=== PATIENT | male | born 1975 | race Caucasian/White ===

== ENCOUNTER 2017-09-22 17:14 | Emergency (ER) | payer OTHER, SELFPAY | END 2017-09-22 17:50 | disposition home or self-care (01) | PROVIDERS: Emergency Provider Nurse Practitioner; Family Provider Internal Medicine Adolescent Medicine; Visit Provider Nurse Practitioner | DX: J32.9 Chronic sinusitis, unspecified (principal) | CPT/HCPCS: 71020; 87804; 99201 ==

== ENCOUNTER 2020-11-06 20:12 | Emergency (ER) | payer OTHER, SELFPAY ==
[2020-11-06 20:15] VITALS: BP 143/92; PULSE 97; RESP 12; TEMP 36.7; O2SAT 97; BMI 44.1
--- NOTE | 2020-11-06 20:38 | HMH.EDUTC ---
[facility] [place] Disposition Clinical Impression: Low back strain Qualifiers: Encounter type: initial encounter Qualified Code(s): S39.012A - Strain of muscle, fascia and tendon of lower back, initial encounter Disposition: Home, Self-Care Condition on Discharge: Good Instructions: DI for Low Back Pain Additional Instructions: Go home and rest. It would be best if you rested tomorrow too. No heavy lifting. No twisting. Take the oral medications as directed. The muscle relaxer (flexeril-cyclobenziprine) will make you drowsy, so don't drive or operate heavy machinery after taking it. Don't start the oral steroids (medrol dose pack) until tomorrow, since you had the shots in here today. Follow up with your regular doctor. GO TO THE ER FOR ANY WORSENING SYMPTOMS OR CONCERN, ESPECIALLY BOWEL OR BLADDER ISSUES, SADDLE AREA NUMBNESS, FEVER, ETC Prescriptions: Cyclobenzaprine HCl [Flexeril 10mg tablet] 10 mg PO TIDP PRN #30 tab PRN Reason: Muscle Spasm Transmission Status: Received by [id number] methylPREDNISolone [Medrol] 4 mg PO DIRECTED 6 Days #21 tab.ds.pk Transmission Status: Received by [id number] Referrals: Nikolai Mcclellan MD [Primary Care Provider] - Time of Disposition: 21:02 Medical Decision Making - Medical Records Medical records reviewed: No: I reviewed the patient's medical records. - Jamie Inquiry Pt receiving controlled substance: No Vital Signs: 11/06/20 20:15 11/06/20 21:10 Temperature 98.0 F 98.0 F Temperature Source Temporal Artery Scan Pulse Rate 97 H Pulse Rate [Right Brachial] 97 H Respiratory Rate 12 12 Blood Pressure 143/92 H Blood Pressure [Right Arm] 143/92 H Blood Pressure Mean [Right Arm] 109 Blood Pressure Source [Right Arm] Automatic Cuff Blood Pressure Position [Right Arm] Sitting 02 Sat by Pulse Oximetry 97 Oxygen Delivery Method Room Air Orders (Tests/Meds): ED MEDICATIONS Discontinued Medications Generic Name Dose Route Start Last Admin Trade Name Freq PRN Reason Stop Dose Admin Ketorolac Tromethamine 60 mg 11/06/20 20:38 11/06/20 21:00 Ketorolac 60mg/2ml Vial IM 11/06/20 20:39 60 mg ONCE ONE Administration Methylprednisolone Sodium Succinate 125 mg 11/06/20 20:38 11/06/20 21:00 Methylprednisolone Sod Succ 125mg Vial IM 11/06/20 20:39 125 mg ONCE ONE Administration [facility] HPI - General Stated complaint: AO [id number] injured lower back Time Seen by Provider: 11/06/20 20:38 Mode of Arrival: Ambulatory Source of Information: Patient Limitations: No Limitations Description of Symptoms (Recalled from Triage Doc. by RN): PATIENT C/O LOWER BACK PAIN. STATES HE HAS BEEN PULLING UP CARPET AND MOVING FURNITURE TODAY HEENT Symptoms (Recalled from RN notes): No Resp Symptoms (Recalled from RN notes): No Skin Symptoms (Recalled from RN notes): No MS Symptoms (Recalled from RN notes): No Functional Status (Recalled from RN notes): WNL - History of Present Illness Provider Complaint: He states that he has had low back pain since earlier today. He was cleaning his carpet and moving furniture when it began. He denies any saddle area numbness and bowel and bladder issues. - Related Data Previous Rx's Medication Instructions Recorded Cyclobenzaprine HCl [Flexeril 10mg 10 mg PO TIDP PRN #30 tab 11/06/20 tablet] methylPREDNISolone [Medrol] 4 mg PO DIRECTED 6 Days #21 11/06/20 tab.ds.pk Allergies Allergy/AdvReac Type Severity Reaction Status Date / Time Cephalosporins Allergy Intermediate Hives Verified 07/21/20 10:34 - Worker's Comp Is this a Worker's Comp case?: No [facility] History - Hepatitis A Screen Drug use history?: No High risk sexual behaviors?: No History of sexually transmitted infection?: No Currently employed?: No Childcare worker?: No Do you have indoor plumbing?: Yes Do you have electricity?: Yes Attestation statement:: This patient has been screened for Hepatiti
[2020-11-06 21:10] VITALS: BP 143/92; PULSE 97; RESP 12; TEMP 36.7; O2SAT 97
== END 2020-11-06 21:12 | disposition home or self-care (01) ==
PROVIDERS: Emergency Provider Nurse Practitioner Family; PCP Internal Medicine Adolescent Medicine
DX: S39.012A Strain of muscle, fascia and tendon of lower back, initial encounter (principal); X50.0XXA Overexertion from strenuous movement or load, initial encounter; Y92.019 Unspecified place in single-family (private) house as the place of occurrence of the external cause; Z88.1 Allergy status to other antibiotic agents
CPT/HCPCS: 96372; 99202; G0463

== ENCOUNTER → 2021-04-05 14:21 | Outpatient (CLI) | payer OTHER, SELFPAY ==
[2021-04-05 14:49] LABS: Basophils % 0.5 % (0.1-2.0); Eosinophils # 0.1 K/mm3 (0.0-0.4); Eosinophils % 1.6 % (0.1-12.0); Hemoglobin 15.2 g/dL (14.1-18.0); Lymphocytes # 2.2 K/mm3 (0.7-4.5); Lymphocytes % 24.1 % (10-50); Mean Corpuscular HGB Conc 34.6 g/dL (31.8-35.4); Mean Corpuscular Hemoglobin 29.2 pg (27.0-31.2); Mean Corpuscular Volume 84.4 fl (80-94); Mean Platelet Volume 8.5 fl (7.4-10.4); Monocytes # 0.5 K/mm3 (0.1-1.0); Monocytes % 5.5 % (1.7-9.3); Neutrophils # 6.2 K/mm3 (1.8-7.8); Neutrophils % 68.4 % (37.0-80.0); Platelet Count 243 K/mm3 (142-424); Red Blood Count 5.22 M/mm3 (4.60-6.20); Red Cell Distribution Width 14.1 % (11.5-17.5)
[2021-04-05 16:12] LABS: Alanine Aminotransferase 22 U/L (12-78); Albumin Level 4.4 g/dl (3.5-5.0); Albumin/Globulin Ratio 1.6 (1.1-1.8); Alkaline Phosphatase 99 U/L (38-126); Anion Gap 14.1 mEq/L (5-15); Aspartate Amino Transferase 31 U/L (17-59); Bilirubin,Total 0.6 mg/dl (0.2-1.3); Blood Urea Nitrogen 15 mg/dl (9-20); Calcium 9.1 mg/dl (8.4-10.2); Carbon Dioxide 25 mmol/L (22.0-30.0); Chloride 104 mmol/L (98-107); Estimated Glomerular Filt Rate 91 ml/min (>60); GFR (African American) 110 ML/MIN (>60); Globulin 2.8 g/dL (1.3-3.2); Glucose 108 mg/dl (74-100); Magnesium 1.9 mg/dl (1.6-2.3); Potassium 4.1 mmoL/L (3.5-5.1); Sodium 139 mmol/L (136-145); Total Protein,Serum 7.2 g/dl (6.3-8.2)
[2021-04-05 16:43] LABS: Thyroid Stimulating Hormone 1.26 uIU/mL (0.465-4.68)
== END ==
PROVIDERS: Visit Provider Internal Medicine Adolescent Medicine
DX: R25.2 Cramp and spasm (principal)
CPT/HCPCS: 36415; 80053; 83735; 84443; 85025

== ENCOUNTER → 2021-06-27 08:22 | Outpatient (CLI) | payer OTHER, SELFPAY | PROVIDERS: PCP Internal Medicine Adolescent Medicine; Visit Provider Nurse Practitioner | DX: Z20.822 Contact with and (suspected) exposure to COVID-19 (principal) | CPT/HCPCS: C9803; U0003; U0005 ==

== ENCOUNTER 2022-06-09 11:01 | Emergency (ER) | payer OTHER, SELFPAY ==
[2022-06-09 12:00] VITALS: BP 129/86; PULSE 88; RESP 18; TEMP 36.7; O2SAT 96; BMI 43.5
--- NOTE | 2022-06-09 12:31 | EXP.UTC ---
Discharge Plan Disposition Patient Disposition: Home, Self-Care Condition: Good Prescriptions Prescriptions: New amoxicillin-pot clavulanate 875-125 mg Tablet 1 tab PO Q12H Qty: 20 0RF methylprednisolone [Medrol (Miki)] 4 mg tablets,dose pack See Rx Instructions .Route .COMPLEX 6 Days Qty: 21 0RF Rx Instructions: taper pack; No Action fexofenadine [Rose] 180 mg Tablet 180 mg PO DAILY Referrals Follow up/Referrals: Nikolai Mcclellan MD [Primary Care Provider] - See instructions Activity Restrictions/Add. Instructions Additional Instructions/Restrictions: Take medication as prescribed Follow up if no improvement or any worsening of symptoms Return if needed Clinical Impressions Clinical Impression: Sinusitis Instructions Patient Instructions: DI for Sinusitis, Sinusitis Discharge ED Provider: Racquel Hill [facility] General Stated complaint: cough, congestion Mode of Arrival: Ambulatory Source of Information: Patient Limitations: No Limitations Time Seen by Provider: 06/09/22 12:31 Description of Symptoms (Recalled from Triage Doc. by RN): PATIENT C/O COUGH AND CONGESTION X 1 WEEK HEENT Symptoms (Recalled from RN notes): Yes Resp Symptoms (Recalled from RN notes): Yes Skin Symptoms (Recalled from RN notes): No MS Symptoms (Recalled from RN notes): No Functional Status (Recalled from RN notes): WNL History of Present Illness Provider Complaint: Patient states that he has been having sinus pain and pressure along with cough and feels like it is trying to move into his chest area States that today he was feeling worse so he came in to get checked out Related Data Home Medications Medication Instructions Recorded Confirmed fexofenadine 180 mg tablet 180 mg PO DAILY Allergy symptoms 06/09/22 06/09/22 Previous Rx's Medication Instructions Recorded amoxicillin 875 mg-potassium 1 tab PO Q12H #20 tabs 06/09/22 clavulanate 125 mg tablet methylprednisolone 4 mg tablets in See Rx Instructions .Route 06/09/22 a dose pack (Medrol (Miki)) .COMPLEX 6 days #21 tabs Allergies Allergy/AdvReac Type Severity Reaction Status Date / Time Cephalosporins Allergy Intermediate Hives Verified 07/21/20 10:34 Worker's Comp Is this a Worker's Comp case?: No [facility] Medical History (Updated 06/09/22 @ 12:40 by Racquel Hill APRN) History of gastroesophageal reflux (GERD) Surgical History (Updated 06/09/22 @ 12:08 by Priscila Elliott RN) History of tonsillectomy Social History (Updated 06/09/22 @ 12:09 by Priscila Elliott RN) Smoking Status: Unknown if ever smoked alcohol intake: never current occupational status: other Travel in the last 8 weeks: None ROS Obtained: Yes All systems reviewed & no additional complaints except as documented and Yes Systems reviewed as appropriate & no additional complaints except as documented Constitutional Constitutional: Reports system reviewed and no additional complaints, except as documented and Reports as per HPI ENT Ears, Nose, Mouth, and Throat: Reports system reviewed and no additional complaints, except as documented, Reports as per HPI, Reports sinus pain and Reports sinus pressure Cardiovascular Cardiovascular: Reports system reviewed and no additional complaints, except as documented and Reports as per HPI Respiratory Respiratory: Reports system reviewed and no additional complaints, except as documented, Reports as per HPI, Reports chest congestion and Reports cough Physical Exam General General appearance: alert and in no apparent distress Expanded ENT Exam Nose exam: Present sinus tenderness Comment: Pharyngeal erythema noted with PND Respiratory Respiratory exam: Present normal lung sounds bilaterally; Absent respiratory distress or wheezes Cardiovascular Cardiovascular exam: Present regular rate, normal rhythm and normal heart sounds Neurological Exam Neurological exam: Present alert, oriented X3 and n
[2022-06-09 12:44] VITALS: BP 129/86; PULSE 88; RESP 18; TEMP 36.7; O2SAT 96
== END 2022-06-09 12:47 | disposition home or self-care (01) ==
PROVIDERS: Emergency Provider Nurse Practitioner; PCP Internal Medicine Adolescent Medicine
DX: J01.90 Acute sinusitis, unspecified (principal)
CPT/HCPCS: 99212; G0463

== ENCOUNTER → 2022-08-28 08:03 | Outpatient (CLI) | payer OTHER, SELFPAY ==
[2022-08-28 08:44] LABS: Basophils # 0.2 K/mm3 (0-0.2); Basophils % 2.5 % (0.1-2.0); Eosinophils # 0.2 K/mm3 (0.0-0.4); Eosinophils % 2.5 % (0.1-12.0); Hematocrit 46.3 % (42.0-52.0); Hemoglobin 15.1 g/dL (14.1-18.0); Lymphocytes # 1.7 K/mm3 (0.7-4.5); Lymphocytes % 24.5 % (10-50); Mean Corpuscular HGB Conc 32.6 g/dL (31.8-35.4); Mean Corpuscular Hemoglobin 28.6 pg (27.0-31.2); Mean Corpuscular Volume 87.7 fl (80-94); Mean Platelet Volume 8.5 fl (7.4-10.4); Monocytes # 0.5 K/mm3 (0.1-1.0); Monocytes % 6.6 % (1.7-9.3); Neutrophils # 4.4 K/mm3 (1.8-7.8); Platelet Count 253 K/mm3 (142-424); Red Blood Count 5.28 M/mm3 (4.60-6.20); Red Cell Distribution Width 14.1 % (11.5-17.5); White Blood Count 6.9 K/mm3 (4.8-10.8)
[2022-08-28 09:10] LABS: Hemoglobin A1C 5.6 % (4.0-6.0)
[2022-08-28 09:24] LABS: Chloride 99 mmol/L (98-107); Sodium 137 mmol/L (136-145)
[2022-08-28 09:25] LABS: Potassium 4.4 mmoL/L (3.5-5.1)
[2022-08-28 09:27] LABS: Alanine Aminotransferase 30 U/L (12-78); Alkaline Phosphatase 110 U/L (38-126); Aspartate Amino Transferase 32 U/L (17-59); Bilirubin,Total 0.4 mg/dl (0.2-1.3); Blood Urea Nitrogen 12 mg/dl (9-20); Estimated Glomerular Filt Rate 90 ml/min (>60); GFR (African American) 109 ML/MIN (>60)
[2022-08-28 09:28] LABS: Albumin Level 4.2 g/dl (3.5-5.0); Albumin/Globulin Ratio 1.4 (1.1-1.8); Anion Gap 11.4 mEq/L (5-15); Calcium 9.6 mg/dl (8.4-10.2); Carbon Dioxide 31 mmol/L (22.0-30.0); Chol/HDL Ratio 4.3 (1-3.5); Cholesterol 260 mg/dl (140-200); Globulin 2.9 g/dL (1.3-3.2); Glucose 90 mg/dl (74-100); HDL Cholesterol 60 mg/dl (40-60); Total Protein,Serum 7.1 g/dl (6.3-8.2); Triglycerides 277 mg/dl (30-150); VLDL Cholesterol 55 mg/dL (0-40)
[2022-08-28 09:35] LABS: C-Reactive Protein 16.7 mg/L (0-4)
[2022-08-28 09:36] LABS: NT Pro Brain Natriuretic Pep. < 11.1 pg/mL (0-125)
[2022-08-29 11:13] LABS: Insulin Level Total 20.3 uIU/mL (2.6-24.9)
== END ==
PROVIDERS: PCP Internal Medicine Adolescent Medicine; Visit Provider Internal Medicine Adolescent Medicine
DX: R05.8 Other specified cough (principal); R53.81 Other malaise; R53.83 Other fatigue
CPT/HCPCS: 36415; 80053; 80061; 82533; 83036; 83525; 83880; 85025; 86140

== ENCOUNTER 2022-11-08 07:55 | Day surgery (SDC) | payer OTHER, SELFPAY ==
[2022-10-11 12:25] VITALS: BMI 45.6
[2022-11-08 08:10] VITALS: BP 135/91; PULSE 84; RESP 18; TEMP 36.3; O2SAT 96
--- NOTE | 2022-11-08 08:36 | P.PN_ITS ---
[facility] Disclaimer: The information contained in this section may have been updated after the patient was seen, as this information can be updated by other users. Medical History History of gastroesophageal reflux (GERD) Surgical History History of tonsillectomy Family History (Updated 11/08/22 @ 08:23 by Farnaz Chand RN) Other No significant family history Social History Smoking Status: Never smoker alcohol intake: never substance use type: denies use current occupational status: employed Travel in the last 8 weeks: Inside the [place] household members: family housing: house lives independently: Yes marital status: caffeine: Yes special todd needs: No agree to transfusion: No do you feel safe at home: Yes victim of physical abuse: No victim of emotional abuse: No victim of sexual abuse: No would you like helpful sources: No [facility] Anesthesia Checklist Patient Identification Patient Identification: Verbal (Name & ) Structural Data Admitted From: Home Planned Operative Procedure/s: colonoscopy Consent for Planned Operative Procedure(s) Verified: Yes Airway Assessment C-Spine Mobility Assessed: Yes TMJ Mobility Assessed: Yes Dentition: Good Dentition Neurological Assessment Level of Consciousness: Awake, Alert and Appropriate Anesthesia Plan Anesthesia Risk discussed: Yes Anesthesia Plan: Verified ASA Class: II Anesthesia Type: MAC
[2022-11-08 08:40] VITALS: O2SAT 96
--- NOTE | 2022-11-08 08:54 | P.PCN_ITS ---
Procedure: Date: 11/08/22 Patient Date of :: 1975 Procedure Performed:: Screening colonoscopy Indications:: Age for screening exam. Father with polyps Performing Provider:: Jany Thompson MD Referring Provider:: Nikolai Mcclellan Sedation:: Propofol Procedure:: After placing the patient in the left lateral decubitus position, the colonoscopy was gently inserted into the rectum and under direct visualization a dvanced to the cecum which was identified by transillumination in the right lower quadrant, identification of the ileocecal valve, appendiceal orifice, and cecal strap. Color, texture, mucosa, and anatomy of the colon were carefully examined with the scope. Findings:: Anal canal: normal Rectum: normal Sigmoid colon: normal without polyps or inflammatory changes Descending colon: normal without polyps or inflammatory changes Splenic flexure: normal Transverse colon: normal without polyps or inflammatory changes Hepatic flexure: normal Ascending colon: normal without polyps or inflammatory changes Cecum: normal Terminal ileum: not visualized Impression: Normal colonoscopy Recommendations:: Follow up examination in about TEN years or so, sooner if clinically indicated. Complications:: None Estimated blood obtained (mL): 0
[2022-11-08 08:57] VITALS: BP 122/80; PULSE 93; RESP 16; TEMP 36.3; O2SAT 96
[2022-11-08 09:07] VITALS: BP 124/84; PULSE 83; RESP 16; O2SAT 96
[2022-11-08 09:17] VITALS: BP 129/89; PULSE 84; RESP 17; O2SAT 96
[2022-11-08 09:27] VITALS: BP 125/75; PULSE 68; RESP 16; TEMP 36.6; O2SAT 97
== END 2022-11-08 09:30 | disposition home or self-care (01) ==
PROVIDERS: PCP Internal Medicine Adolescent Medicine; Visit Provider Internal Medicine Gastroenterology
PROC: 0DJD8ZZ Inspection of Lower Intestinal Tract, Via Natural or Artificial Opening Endoscopic (ICD-10-PCS; CPT 45378; principal; 2022-11-08 09:00)
DX: Z12.11 Encounter for screening for malignant neoplasm of colon (principal)
CPT/HCPCS: 45378

== ENCOUNTER 2022-12-16 10:27 | Emergency (ER) | payer OTHER, SELFPAY ==
--- NOTE | 2022-12-16 11:29 | XR_ITS ---
PROCEDURE INFORMATION: Exam: XR Chest Exam date and time: 12/16/2022 11:27 AM Age: 47 years old Clinical indication: Cough TECHNIQUE: Imaging protocol: Radiologic exam of the chest. Views: 2 views. COMPARISON: CR CXR CHEST(2 VIEWS-NOT PORTABLE) 09/22/2017 5:27 PM FINDINGS: Lungs: No focal airspace disease. Pleural spaces: Unremarkable. No pleural effusion. No pneumothorax. Heart/Mediastinum: Cardiomediastinal silhouette is within normal limits. Bones/joints: Unremarkable. IMPRESSION: No acute cardiopulmonary abnormality.
[2022-12-16 11:30] VITALS: BP 130/93; PULSE 76; RESP 20; TEMP 36.8; O2SAT 97; BMI 46.3
--- NOTE | 2022-12-16 11:31 | EXP.UTC ---
Discharge Plan Disposition Patient Disposition: Home, Self-Care Condition: Good Prescriptions Prescriptions: New amoxicillin-pot clavulanate 875-125 mg Tablet 1 tab PO Q12H Qty: 20 0RF benzonatate [benzonatate] 100 mg capsule 100 mg PO TIDP PRN (Reason: Cough) Qty: 30 0RF methylprednisolone 4 mg Tablets,Dose Pack 4 mg PO DIRECTED Qty: 21 0RF No Action montelukast 10 mg Tablet 10 mg PO DAILY fluticasone propionate [Flonase] 50 mcg/actuation [place],Suspension 1 spray INTRANASAL DAILY fluticasone propionate [Flovent HFA] 110 mcg/actuation HFA aerosol inhaler 110 mcg INHALATION DAILY Referrals Follow up/Referrals: Nikolai Mcclellan MD [Primary Care Provider] - See instructions Activity Restrictions/Add. Instructions Additional Instructions/Restrictions: Drink plenty of fluids. Take tylenol or ibuprofen for pain or fever. Take the medications as directed. Follow up with your regular doctor. GO TO THE ER FOR ANY WORSENING SYMPTOMS Don't start the oral steroids until tomorrow, since you had the shot here today. Clinical Impressions Clinical Impression: Bronchitis Instructions Patient Instructions: Acute Bronchitis, DI for Acute Bronchitis, Dexamethasone Injection Discharge ED Provider: Juanjose Feng [facility] HPI General Stated complaint: cough Time Seen by Provider: 12/16/22 11:31 History of Present Illness Provider Complaint: He states that for the past 2 days he has had chest congestion and sinus congestion. Related Data Home Medications Medication Instructions Recorded Confirmed fluticasone propionate 110 110 mcg inhalation DAILY . 12/16/22 12/16/22 mcg/actuation HFA aerosol inhaler (Flovent HFA) fluticasone propionate 50 1 spray intranasal DAILY . 12/16/22 12/16/22 mcg/actuation nasal spray,suspension montelukast 10 mg tablet 10 mg PO DAILY . 12/16/22 12/16/22 Previous Rx's Medication Instructions Recorded amoxicillin 875 mg-potassium 1 tab PO Q12H #20 tabs 12/16/22 clavulanate 125 mg tablet benzonatate 100 mg capsule 100 mg PO TIDP PRN Cough #30 caps 12/16/22 methylprednisolone 4 mg tablets in 4 mg PO DIRECTED #21 tabs 12/16/22 a dose pack Allergies Allergy/AdvReac Type Severity Reaction Status Date / Time Cephalosporins Allergy Intermediate Hives Verified 12/16/22 11:34 [facility] Disclaimer: The information contained in this section may have been updated after the patient was seen, as this information can be updated by other users. Medical History History of gastroesophageal reflux (GERD) Surgical History History of tonsillectomy Family History Other No significant family history Social History Smoking Status: Never smoker alcohol intake: never substance use type: denies use current occupational status: employed Travel in the last 8 weeks: Inside the [place] household members: family housing: house lives independently: Yes marital status: caffeine: Yes special todd needs: No agree to transfusion: No do you feel safe at home: Yes victim of physical abuse: No victim of emotional abuse: No victim of sexual abuse: No would you like helpful sources: No ROS Obtained: Yes All systems reviewed & no additional complaints except as documented Constitutional Constitutional: Reports poor appetite Eyes Eyes: Reports system reviewed and no additional complaints, except as documented ENT Ears, Nose, Mouth, and Throat: Reports as per HPI Cardiovascular Cardiovascular: Reports system reviewed and no additional complaints, except as documented and Denies chest pain Respiratory Respiratory: Denies shortness of breath, Reports chest congestion, Reports cough,
[2022-12-16 12:41] VITALS: BP 130/93; PULSE 76; RESP 20; TEMP 36.8; O2SAT 97
== END 2022-12-16 12:40 | disposition home or self-care (01) ==
PROVIDERS: Emergency Provider Nurse Practitioner Family; PCP Internal Medicine Adolescent Medicine
DX: J20.9 Acute bronchitis, unspecified (principal)
CPT/HCPCS: 96372; 71046; 99212; 99214; G0463

== ENCOUNTER → 2023-01-22 13:44 | Outpatient (POV) | payer OTHER, SELFPAY | PROVIDERS: Visit Provider Dermatology | DX: Z00.00 Encounter for general adult medical examination without abnormal findings (principal) ==

== ENCOUNTER → 2023-02-20 10:37 | Outpatient (CLI) | payer OTHER, SELFPAY ==
[2023-02-20 11:12] LABS: Basophils # 0.1 K/mm3 (0-0.2); Basophils % 0.7 % (0.1-2.0); Eosinophils # 0.2 K/mm3 (0.0-0.4); Hemoglobin 14.7 g/dL (14.1-18.0); Lymphocytes # 1.9 K/mm3 (0.7-4.5); Lymphocytes % 26.6 % (10-50); Mean Corpuscular HGB Conc 32.7 g/dL (31.8-35.4); Mean Corpuscular Hemoglobin 28.9 pg (27.0-31.2); Mean Corpuscular Volume 88.4 fl (80-94); Mean Platelet Volume 8.6 fl (7.4-10.4); Monocytes # 0.4 K/mm3 (0.1-1.0); Monocytes % 5.8 % (1.7-9.3); Neutrophils # 4.6 K/mm3 (1.8-7.8); Platelet Count 232 K/mm3 (142-424); Red Blood Count 5.09 M/mm3 (4.60-6.20); Red Cell Distribution Width 14.1 % (11.5-17.5); White Blood Count 7.1 K/mm3 (4.8-10.8)
[2023-02-20 11:48] LABS: Chloride 94 mmol/L (98-107); Potassium 4.2 mmoL/L (3.5-5.1); Sodium 135 mmol/L (136-145)
[2023-02-20 11:50] LABS: Alanine Aminotransferase 32 U/L (12-78); Aspartate Amino Transferase 36 U/L (17-59); Blood Urea Nitrogen 14 mg/dl (9-20); Estimated Glomerular Filt Rate 90 ml/min (>60); GFR (African American) 109 ML/MIN (>60)
[2023-02-20 11:51] LABS: Albumin Level 4.2 g/dl (3.5-5.0); Albumin/Globulin Ratio 1.7 (1.1-1.8); Alkaline Phosphatase 92 U/L (38-126); Anion Gap 14.2 mEq/L (5-15); Bilirubin,Total 0.4 mg/dl (0.2-1.3); Calcium 9.2 mg/dl (8.4-10.2); Carbon Dioxide 31 mmol/L (22.0-30.0); Chol/HDL Ratio 3.7 (1-3.5); Cholesterol 230 mg/dl (140-200); Creatine Kinase 178 U/L (55-170); Globulin 2.5 g/dL (1.3-3.2); Glucose 85 mg/dl (74-100); HDL Cholesterol 63 mg/dl (40-60); Total Protein,Serum 6.7 g/dl (6.3-8.2); Triglycerides 290 mg/dl (30-150); VLDL Cholesterol 58 mg/dL (0-40)
[2023-02-20 11:54] LABS: Erythrocyte Sedimentation Rate 58 mm/hr (0-15)
[2023-02-20 12:02] LABS: Direct LDL Cholesterol 102.08 mg/dL (100-129)
[2023-02-20 12:09] LABS: 25-OH Vitamin D, Total 27.7 ng/mL (30-100)
[2023-02-20 12:41] LABS: Vitamin B12 400 pg/mL (239-931)
[2023-02-20 13:02] LABS: Hemoglobin A1C 5.5 % (4.0-6.0)
[2023-02-20 13:59] LABS: Thyroid Stimulating Hormone 1.66 uIU/mL (0.465-4.68)
[2023-02-22 09:54] LABS: C-Reactive Protein 11.4 mg/L (0-4)
[2023-02-25 14:39] LABS: Aldolase 5.7 U/L (3.3-10.3)
[2023-02-25 20:04] LABS: Antinuclear Antibodies, IFA Negative (.)
== END ==
PROVIDERS: PCP Internal Medicine Adolescent Medicine; Visit Provider Nurse Practitioner Family
DX: M79.10 Myalgia, unspecified site (principal); R25.2 Cramp and spasm; R53.81 Other malaise; E78.2 Mixed hyperlipidemia; R70.0 Elevated erythrocyte sedimentation rate; R74.8 Abnormal levels of other serum enzymes
CPT/HCPCS: 36415; 80053; 80061; 82085; 82306; 82550; 82607; 83036; 83735; 84443; 85025; 85651; 86038; 86140

== ENCOUNTER → 2023-03-29 07:25 | Outpatient (CLI) | payer OTHER, SELFPAY ==
[2023-03-29 09:07] LABS: Chloride 99 mmol/L (98-107); Potassium 4.3 mmoL/L (3.5-5.1); Sodium 137 mmol/L (136-145)
[2023-03-29 09:09] LABS: Blood Urea Nitrogen 14 mg/dl (9-20); Estimated Glomerular Filt Rate 80 ml/min (>60); GFR (African American) 97 ML/MIN (>60)
[2023-03-29 09:10] LABS: Alanine Aminotransferase 31 U/L (12-78); Albumin/Globulin Ratio 1.5 (1.1-1.8); Alkaline Phosphatase 95 U/L (38-126); Anion Gap 15.3 mEq/L (5-15); Aspartate Amino Transferase 36 U/L (17-59); Bilirubin,Total 0.6 mg/dl (0.2-1.3); Calcium 8.9 mg/dl (8.4-10.2); Carbon Dioxide 27 mmol/L (22.0-30.0); Creatine Kinase 358 U/L (55-170); Globulin 2.7 g/dL (1.3-3.2); Glucose 86 mg/dl (74-100); Total Protein,Serum 6.7 g/dl (6.3-8.2)
[2023-03-29 09:29] LABS: Erythrocyte Sedimentation Rate 16 mm/hr (0-15)
[2023-03-29 09:35] LABS: Basophils % 0.4 % (0.1-2.0); Eosinophils # 0.2 K/mm3 (0.0-0.4); Eosinophils % 2.3 % (0.1-12.0); Hematocrit 46.1 % (42.0-52.0); Hemoglobin 15.1 g/dL (14.1-18.0); Lymphocytes # 2.1 K/mm3 (0.7-4.5); Lymphocytes % 30.5 % (10-50); Mean Corpuscular HGB Conc 32.8 g/dL (31.8-35.4); Mean Corpuscular Hemoglobin 28.1 pg (27.0-31.2); Mean Corpuscular Volume 85.5 fl (80-94); Monocytes # 0.5 K/mm3 (0.1-1.0); Monocytes % 7.3 % (1.7-9.3); Neutrophils # 4.1 K/mm3 (1.8-7.8); Neutrophils % 59.4 % (37.0-80.0); Platelet Count 275 K/mm3 (142-424); White Blood Count 6.9 K/mm3 (4.8-10.8)
[2023-03-29 10:11] LABS: C-Reactive Protein 15.5 mg/L (0-4)
[2023-03-30 19:35] LABS: RA Latex Turbid. <10.0 IU/mL (<14.0)
== END ==
PROVIDERS: PCP Internal Medicine Adolescent Medicine; Visit Provider Internal Medicine Adolescent Medicine
DX: M79.10 Myalgia, unspecified site (principal); R74.8 Abnormal levels of other serum enzymes
CPT/HCPCS: 36415; 80053; 82550; 85025; 85651; 86140; 86431

== ENCOUNTER → 2023-06-20 08:32 | Outpatient (CLI) | payer OTHER, SELFPAY ==
--- NOTE | 2023-06-20 08:36 | CA_ITS ---
APPROVED REPORT EXAM: Comprehensive 2D, Doppler, and color-flow Echocardiogram Insurance Examining Clerk: Catrachita Carballo RT(R) Ht: 5 ft 9 in Wt: 305lbs BSA: 2.47 BP: 142/84 mmHg Indications: SOA, fatigue, family history of HD, obesity, myalgia 2D Dimensions LVOT 1.98 cm (M/F) 1.5-2.5 M-Mode Dimensions RVDd 3.47 cm (0.9-2.6) LA Diam 3.44 cm (1.9-4.0) LVDd 4.36 cm (3.5-5.7) Ao Diam 3.48 cm (2.0-3.7) LVDs 3.33 cm (3.5-5.7) IVSd 1.17 cm (0.6-1.1) PWd 1.22 cm (0.6-1.1) EF (Teich) 47.40% FS 23.60% EDV (Teich) 85.80 mL ESV (Teich) 45.10 mL LV Diastology E Decel Time 183.00 (160-240 msec) E/A Ratio 0.8 MED E' 5.70 (< 7 cm/sec) E'/MED E' Ratio 14.84 (>14) LAT E' 6.00 (<10 cm/sec) E/LAT E' Ratio 14.10 (>14) Mitral Valve MV E Max David. 85.00 (40-130 cm/s) MV A Velocity 101.00 (40-130 cm/s) E/A Ratio 0.83 MV Decel. Time 183.00 (160-240 ms) MV PHT 54.00 ms Left Ventricle The left ventricle is normal size. The left ventricular systolic function is normal. The left ventricular ejection fraction is within the normal range. There is increased LV wall thickness. There is normal LV segmental wall motion. Diastolic function is indeterminate. LVEF is 60%. Right Ventricle The right ventricle is normal size. The right ventricular systolic function is normal. Atria The left atrium size is normal. The right atrium size is normal. The atrial septum is not well visualized. Aortic Valve The aortic valve is mildly thickened. There is no aortic valvular stenosis. No aortic regurgitation is present. Mitral Valve The mitral valve is normal in structure. No evidence of mitral valve stenosis. Trace mitral regurgitation. Tricuspid Valve The tricuspid valve leaflets are thin and pliable. Trace tricuspid regurgitation. There is insufficient TR jet to estimate RVSP. Pulmonic Valve The pulmonary valve is normal in structure. Trace pulmonic regurgitation. Great Vessels The aortic root is normal in size. The ascending aorta is normal in size. The IVC is not well visualized. Pericardium There is no pericardial effusion. Other Information Study Quality: Fair Conclusion Normal biventricular systolic function. No significant valvular stenosis or regurgitation. Electronically signed by : Natalia Ritchie, 06/24/2023 16:50:33
== END ==
PROVIDERS: PCP Internal Medicine Adolescent Medicine; Visit Provider Nurse Practitioner Family
DX: R06.02 Shortness of breath (principal); M79.10 Myalgia, unspecified site
CPT/HCPCS: 93306

== ENCOUNTER → 2023-09-03 13:03 | Outpatient (CLI) | payer OTHER, SELFPAY | PROVIDERS: PCP Internal Medicine Adolescent Medicine; Visit Provider Specialist | DX: R06.02 Shortness of breath (principal); R53.83 Other fatigue | CPT/HCPCS: 94060; 94618; 94726; 94729 ==

== ENCOUNTER → 2023-09-10 07:30 | Outpatient (CLI) | payer OTHER, SELFPAY ==
[2023-09-10 08:31] LABS: Erythrocyte Sedimentation Rate 11 mm/hr (0-15)
[2023-09-10 09:54] LABS: Creatine Kinase 192 U/L (55-170)
[2023-09-11 14:32] LABS: Aldolase 4.9 U/L (3.3-10.3)
[2023-09-13 09:28] LABS: Lyme B. burgdorferi PCR Blood Negative (Negative)
== END ==
PROVIDERS: PCP Internal Medicine Adolescent Medicine; Visit Provider Specialist
DX: E66.9 Obesity, unspecified (principal); G47.9 Sleep disorder, unspecified; R06.81 Apnea, not elsewhere classified; R74.8 Abnormal levels of other serum enzymes; R53.81 Other malaise; R53.82 Chronic fatigue, unspecified; Z68.41 Body mass index [BMI] 40.0-44.9, adult
CPT/HCPCS: 36415; 82085; 82550; 85651; 87476

== ENCOUNTER 2023-10-10 16:43 | Emergency (ER) | payer OTHER, SELFPAY ==
--- NOTE | 2023-10-10 16:55 | EXP.UTC ---
Discharge Plan Disposition Patient Disposition: Home, Self-Care Condition: Good Prescriptions Prescriptions: New azithromycin [Zithromax] 250 mg tablet 250 mg PO UD DOSE PK Qty: 6 0RF Rx Instructions: Take two (2) tablets today, then one (1) tablet days #2 thru #5 methylprednisolone 4 mg Tablets,Dose Pack 4 mg PO DIRECTED 6 Days Qty: 21 0RF Rx Instructions: Take 1 pack as directed for 6 days guaifenesin [Mucinex] 600 mg tablet extended release 12hr 600 - 1,200 mg PO BIDP PRN (Reason: Congestion) Qty: 30 0RF benzonatate [benzonatate] 100 mg capsule 100 mg PO TIDP PRN (Reason: Cough) Qty: 30 0RF No Action meloxicam 15 mg tablet 15 mg PO DAILY methocarbamol 750 mg tablet 750 mg PO BID Patient Comments: TAKE 1 TABLET BY MOUTH TWICE DAILY NEEDED fexofenadine [Rose Allergy] 180 mg tablet 180 mg PO DAILY fluticasone propionate [Flonase Allergy Relief] 50 mcg/actuation spray,suspension 1 spray intranasal DAILY Rx Instructions: administer into each nostril valacyclovir 1 gram tablet 1,000 mg PO BID PRN (Reason: .) magnesium oxide 400 mg (241.3 mg magnesium) tablet See Rx Instructions .ROUTE .COMPLEX Patient Comments: TAKE 1 TABLET BY MOUTH ONCE A DAY AT BEDTIME Rx Instructions: TAKE 1 TABLET BY MOUTH ONCE A DAY AT BEDTIME montelukast 10 mg Tablet 10 mg PO DAILY fluticasone propionate [Flonase] 50 mcg/actuation [place],Suspension 1 spray INTRANASAL DAILY Referrals Follow up/Referrals: Nikolai Mcclellan MD [Primary Care Provider] - See instructions Activity Restrictions/Add. Instructions Additional Instructions/Restrictions: Drink plenty of fluids. Take tylenol or ibuprofen for pain or fever. Take the medications as directed. Follow up with your regular doctor. GO TO THE ER FOR ANY WORSENING SYMPTOMS Clinical Impressions Clinical Impression: Sinusitis, Otitis media Instructions Patient Instructions: Middle Ear Infection, DI for Sinusitis, Methylprednisolone, Azithromycin Discharge ED Provider: Juanjose Feng [facility] [place] HPI General Stated complaint: runny nose, sore throat, cough Time Seen by Provider: 10/10/23 16:55 History of Present Illness Provider Complaint: He states that for the past 3 days he has had worsening sinus congestion, left ear pain, and headache. Related Data Home Medications Medication Instructions Recorded Confirmed fluticasone propionate 50 1 spray intranasal DAILY . 12/16/22 10/10/23 mcg/actuation nasal spray,suspension montelukast 10 mg tablet 10 mg PO DAILY . 12/16/22 10/10/23 fexofenadine 180 mg tablet 180 mg PO DAILY 08/19/23 08/19/23 (Rose Allergy) fluticasone propionate 50 1 spray intranasal DAILY 08/19/23 10/10/23 mcg/actuation nasal spray,suspension (Flonase Allergy Relief) meloxicam 15 mg tablet 15 mg PO DAILY 08/19/23 10/10/23 methocarbamol 750 mg tablet 750 mg PO BID 08/19/23 10/10/23 valacyclovir 1 gram tablet 1,000 mg PO BID PRN . 08/19/23 10/10/23 magnesium oxide 400 mg (241.3 mg See Rx Instructions .Route .COMPLEX 10/10/23 10/10/23 magnesium) tablet Previous Rx's Medication Instructions Recorded azithromycin 250 mg tablet 250 mg PO UD DOSE PK #6 tabs 10/10/23 (Zithromax) benzonatate 100 mg capsule 100 mg PO TIDP PRN Cough #30 caps 10/10/23 guaifenesin 600 mg tablet, 600 - 1,200 mg PO BIDP PRN 10/10/23 extended release 12 hr (Mucinex) Congestion #30 tabs methylprednisolone 4 mg tablets in 4 mg PO DIRECTED 6 days #21 tabs 10/10/23 a dose pack Allergies Allergy/AdvReac Type Severity Reaction Status Date / Time Cephalosporins Allergy Intermediate Hives Verified 10/10/23 17:27 [facility] Disclaimer: The information contained in this section may have been updated after the patient was seen, as this information can be updated by other users. Medical History History of gastroesophageal reflux (GERD) Surgical History History of tonsillectomy Family History Other Diabetes Hyperlipidemia Hypertension No significant family history Obesity Stroke Social History Smoking Status: Never smoker alcohol intake: never substance use type: denies use current occupational status: employed Travel in the last 8 weeks: None household members: family housing: house lives independently: Yes marital status: caffeine: Yes special todd needs: No agree to transfusion: No do you feel safe at home: Yes victim of physical abuse: No victim of emotional abuse: No victim of sexual abuse: No would you like helpful sources: No ROS Obtained: Yes All systems reviewed & no additional complaints except as documented Constitutional Constitutional: Reports poor appetite Eyes Eyes: Reports system reviewed and no additional complaints, except as documented ENT Ears, Nose, Mouth, and Throat: Reports as per HPI Cardiovascular Cardiovascular: Reports system reviewed and no additional complaints, except as documented and Denies chest pain Respiratory Respiratory: Denies shortness of breath, Denies chest congestion, Reports cough, Denies stridor and Denies wheezing Gastrointestinal Gastrointestingal: Reports system reviewed and no additional complaints, except as documented; Denies abdominal pain, diarrhea or vomiting Musculoskeletal Musculoskeletal: Reports system reviewed and no additional complaints, except as documented and Denies arthralgias Integumentary/Breasts Skin/Breast: Reports system reviewed and no additional complaints, except as documented and Denies rash Neurologic Neurologic: Denies paresthesias Allergic/Immunologic Allergic/Immunologic: Denies wheezing Physical Exam General General appearance: alert and in no apparent distress Eye Eye exam: Present normal appearance, PERRL and EOMI ENT ENT exam: Present mucous membranes moist and normal external ear exam Expanded ENT Exam External ear exam: Present normal external inspection TM/Canal exam: Bilateral TM: erythema and bulging Nose exam: Absent sinus tenderness Nasal speculum exam: Bilateral: normal Mouth exam: Present normal external inspection; Absent drooling Teeth exam: Present normal inspection Throat exam: Present tonsillar erythema and tonsillomegaly Neck Neck exam: Present normal inspection, full ROM and trachea midline; Absent tenderness, lymphadenopathy or thyromegaly Chest Chest inspection: Present normal inspection and symmetric chest wall rise; Absent tenderness or rash Respiratory Respiratory exam: Present normal lung sounds bilaterally; Absent respiratory distress, wheezes, stridor or accessory muscle use Cardiovascular Cardiovascular exam: Present regular rate, normal rhythm and normal heart sounds Abdominal Exam Abdominal exam: Present soft; Absent distention, tenderness, guarding, rebound or rigidity Extremities Exam Extremities exam: Present normal inspection, full ROM and normal capillary refill; Absent tenderness or calf tenderness Back Exam Back exam: Present normal inspection and full ROM; Absent tenderness Neurological Exam Neurological exam: Present alert and oriented X3 Psychiatric Psychiatric exam: Present normal affect and normal mood Skin Skin exam: Present warm, dry, intact and normal color Lymphatic Lymphatic Findings: no adenopathy Medical Decision Making Medical Records Medical records reviewed: No I reviewed the patient's medical records. Jamie Inquiry Pt receiving controlled substance: No
[2023-10-10 17:10] VITALS: BP 148/91; PULSE 112; RESP 18; TEMP 36.4; O2SAT 95; BMI 46.3
[2023-10-10 17:24] LABS: UTC Strep Screen (Rapid) Negative (Negative)
[2023-10-10 17:25] LABS: UTC Influenza A Antigen Negative (Negative); UTC Influenza B Antigen Negative (Negative)
[2023-10-10 17:41] VITALS: BP 148/91; PULSE 112; RESP 18; TEMP 36.4; O2SAT 95
== END 2023-10-10 17:41 | disposition home or self-care (01) ==
PROVIDERS: Emergency Provider Nurse Practitioner Family; PCP Internal Medicine Adolescent Medicine
DX: J01.90 Acute sinusitis, unspecified (principal); H66.90 Otitis media, unspecified, unspecified ear; R51.9 Headache, unspecified; R05.9 Cough, unspecified
CPT/HCPCS: 87804; 87880; 99212; 99214; G0463

== ENCOUNTER → 2023-10-31 14:42 | Outpatient (CLI) | payer OTHER, SELFPAY | LOC: SL 14:43 | PROVIDERS: PCP Internal Medicine Adolescent Medicine; Visit Provider Specialist | DX: R06.83 Snoring (principal) | CPT/HCPCS: 95806 ==

== ENCOUNTER 2023-11-05 09:36 | Outpatient (CLI) | payer OTHER, SELFPAY | END 2023-11-05 23:59 | LOC: RT 09:37 | PROVIDERS: PCP Internal Medicine Adolescent Medicine; Visit Provider Physician Assistant | DX: I10 Essential (primary) hypertension (principal); R00.0 Tachycardia, unspecified; R06.09 Other forms of dyspnea; R94.31 Abnormal electrocardiogram [ECG] [EKG] | CPT/HCPCS: 93270 ==

== ENCOUNTER 2023-11-21 07:08 | Outpatient (CLI) | payer OTHER, SELFPAY ==
[2023-11-21] VITALS (8 sets, daily range): BP systolic 104–135; BP diastolic 61–94; PULSE 67–79; RESP 18; TEMP 36.8; O2SAT 97–98; BMI 46.6
--- NOTE | 2023-11-21 07:08 | CT_ITS ---
APPROVED REPORT Boardinghouse Keeper: CLINICAL INDICATION Chest Pain TECHNIQUE Image Acquisition: A 128 slice MDCT scanner ([employer] Ensendaa View) was used for data acquisition. A noncontrast coronary calcium scan was performed. A CT attenuation threshold of 130 Hounsfield units (HU) was used for the detection of calcium in contiguous voxels of 1 sq mm in area to be counted as individual lesions. Bolus tracking in the ascending aorta with a threshold of 180 HU was performed. Immediately afterwards, ECG synchronized cardiac CT was then performed from the cardiac base to apex using retrospective gating with ECG tube current modulation. A total of 85 mL of Isovue 370 mg/mL contrast medium was administered at 5 mL/sec followed by a saline flush using a biphasic injection protocol. A tube voltage of 120 KVp was used. The patient received the following medications prior to the cardiac CT. 150 mg of oral metoprolol 10 mg of intravenous metoprolol 15 mg of oral ivabradine 10 mg of intravenous verapamil 0.8 mg of sublingual nitroglycerin The average heart rate at the time of acquisition was 64 bpm and regular. Image Reconstruction Transaxial images were reconstructed at 0.67 mm slide thickness. Data was reviewed interactively on an advanced workstation capable of 2 and 3-dimensional displays in all conventional reconstruction formats, including multiplanar reformations, maximum intensity projections, curved multiplanar reformations, and volume rendered reconstructions. When applicable, selected routine images describing the relevant coronary anatomy and pathology were saved and sent to PACS. Complications None Technical Quality Technically difficult study. Overall image quality was suboptimal due to poor image quality and elevated HR (despite HR-controlling medications as above). Coronary artery opacification was suboptimal. Total DLP (Dose-Length Product) is 2936.9 mGy-cm. The reported value represents the total of one or more individual components during the CT acquisition of this date and at this time, and as such, the same value may appear in more than one CT report depending on the interpreting/reporting physicians. COMPARISON None FINDINGS CT Coronary Calcium Scoring LMA (Left Main Artery) = 0 LAD (Left Anterior Descending) = 275 LCX (Left Coronary Circumflex) = 42 RCA (Right Coronary Artery) = 2 Total Calcium Score = 319 using the AJ-130 method. The observed calcium score of 319 is at 97th percentile for subjects of the same age, sex, and race/ethnicity. The interpretation of the calcium heart score is based on the following continuum*: 0 = no calcified plaque detected (risk of coronary artery disease is very low ??? less than 5%) 1-10 = calcium detected in extremely minimal levels (risk of coronary diseases is still low ??? less than 10%) 11-100 = mild levels of plaque detected with certainty (mild or minimal narrowing of heart arteries is likely) 101-400 = definite,at least moderate levels of plaque detected (relatively high risk of a heart attack within 3-5 years) >401-999 = extensive levels of plaque detected (high risk of heart attack, high levels of vascular disease are present, high likelihood of at least one significant coronary narrowing) *The calcium heart score quantifies the burden of coronary calcification/plaque in the coronary arteries. The calcium heart score is not able to evaluate the presence or burden of non-calcified (i.e. soft) plaque. There is also identifiable calcification in the aortic valve, mitral annulus or mitral valve, pericardium, or myocardium. Coronary CT Angiography The coronary arterial system is co-dominant. Quantitative Stenosis Grading: Left Main (LM): The left main originates normally from the left sinus of Valsalva. The LM bifurcates into the left anterior descending artery and left circumflex artery. The LM is patent with no evidence of atherosclerosis. Left Anterior Descending (LAD) and Diagonal Branches: The LAD gives off 2 diagonal branch(es). There is mixed calcified/noncalcified plaque in the proximal LAD, with presence of 30-50% mild luminal stenosis. There is no evidence of LAD-myocardial bridge. Left Circumflex (LCX) and Obtuse Marginals (OM): The LCX gives off 1 Obtuse Marginal (OM) branch(es). There are multiple foci of calcification in the proximal LCx, but without presence of luminal stenosis. Right Coronary Artery (RCA): The RCA originates normally from the right sinus of Valsalva. There is significant reduction in opacification of the mid and distal RCA. Findings are concerning for chronic sub/total occlusion, but artifact cannot be ruled out in the setting of suboptimal study. Non-Coronary Cardiac Findings: Analysis of the left ventricular (LV) structure and function was performed after 3-D reconstruction of the LV from axial images, with user-corrected automatic contouring for assessment of LV volumes and user-defined reconstruction from oblique planes for measurement of 3-D cardiac structure and function. LVEDV: 169 mL LVESV: 82 mL SV: 87 mL LVEF: 52% -The left ventricle is normal in size with normal left ventricular systolic function. -There is no left atrial appendage filling defect. Two right pulmonary veins and two left pulmonary veins drain normally into the left atrium. -No pericardial thickening or calcification. -Central and branch pulmonary arteries in the [id number] are unremarkable. -Thoracic aorta within the visualized thoracic aortic-branches in the [id number] is unremarkable. Extracardiac Structures No significant extra-cardiac findings. Note, however, that this study is focused on the cardiac findings. IMPRESSION -Technically difficult study due to poor image quality and elevated HR despite HR-controlling meds. This may affect the diagnostic interpretation of the study findings. -Presence of coronary calcification with an Agatston score = 319 using the AJ-130 method. -The observed calcium score of 319 is at 97th percentile for subjects of the same age, sex, and race/ethnicity. -Possible evidence of significant flow-limiting atherosclerosis of the coronary arteries, but this finding is inconclusive in the setting of technically difficult study and suboptimal image quality. -Further evaluation to conclusively rule out heart disease is recommended in the setting of inconclusive CCTA findings with presence of elevated calcium score and clinically relevant findings. *Recommendations: CAD RADS 0: Reassurance. Consider non-atherosclerotic causes of chest pain. CAD RADS 1: Consider non-atherosclerotic causes of chest pain. Consider preventive therapy and risk factor modification. CAD RADS 2: Consider non-atherosclerotic causes of chest pain. Consider preventive therapy and risk factor modification, particularly for patients with nonobstructive plaque in multiple segments. CAD RADS 3: Consider further functional testing. Consider symptom-guided anti-ischemic and preventive pharmacotherapy as well as risk factor modification per published guideline statements. CAD RADS 4A: Consider further functional testing or invasive coronary angiography with revascularization per published guideline statements. Consider symptom-guided anti-ischemic and preventive pharmacotherapy as well as risk factor modification per published guideline statements. CAD RADS 4B: Invasive coronary angiography recommended with revascularization per published guideline statements. Consider symptom-guided anti-ischemic and preventive pharmacotherapy as well as risk factor modification per published guideline statements. CAD RADS 5: Consider invasive angiography and/or viability assessment with revascularization per published guideline statements. Consider symptom-guided anti-ischemic and preventive pharmacotherapy as well as risk factor modification per published guideline statements. CRITICAL RESULT None COMMUNICATION Per this written report The coronary and cardiac findings of this CCTA were reviewed, reported, and signed by Patrick Ritchie MD (Radio Interference Investigator) Conclusion Electronically signed by : Natalia Ritchie MD 11/21/2023 13:02:56
--- NOTE | 2023-11-21 07:36 | PC.NURSE ---
HAVING DIFFICULTY STARTING AN IV, STUCK X4 AND GOT IN L A/C PER Alonzo CROWLEY RN
[2023-11-21] MEDS: IVABRADINE HCL 7.5MG TABLET *IVABRADINE+METOPROLOL REGIMINE 15 MG PO (07:42)
[2023-11-21] MEDS: METOPROLOL TARTRATE 50MG TABLET *IVABRADINE+METOPROLOL REGIMINE 75 MG PO ×2 (07:43→08:40)
[2023-11-21 07:53] LABS: Chloride 102 mmol/L (98-107)
[2023-11-21 07:54] LABS: Potassium 4.1 mmoL/L (3.5-5.1); Sodium 137 mmol/L (136-145)
[2023-11-21 07:56] LABS: Blood Urea Nitrogen 18 mg/dl (9-20); Creatinine Clearance Estimated 86 mL/min (50-200); Estimated Glomerular Filt Rate 79 ml/min (>60); GFR (African American) 96 ML/MIN (>60)
[2023-11-21 07:57] LABS: Anion Gap 6.1 mEq/L (5-15); Carbon Dioxide 33 mmol/L (22.0-30.0); Glucose 97 mg/dl (74-100)
--- NOTE | 2023-11-21 08:41 | PC.NURSE ---
HR REMAINS 77 AFTER 1 HOUR AFTER INITIAL DOSE OF IVABRADINE AND METOPROLOL. PER CTA PROTOCOL REPEATING METOPROLOL 75MG PO. PT DOING WELL, PLEASANT AND WITHOUT C/O.
--- NOTE | 2023-11-21 09:30 | PC.NURSE ---
ARRIVED TO CT ROOM, BP 131/94, NITOR 0.8MG SL GIVEN
--- NOTE | 2023-11-21 09:36 | PC.NURSE ---
HR STILL 70. METOPROLOL 5MG IV GIVEN PER PROTOCOL
[2023-11-21] MEDS: METOPROLOL TARTRATE 5MG/5ML VIAL *IVABRADINE+METOPROLOL REGIMINE 5 MG IV ×2 (09:41→10:18)
--- NOTE | 2023-11-21 09:41 | PC.NURSE ---
HR STILL 74, METOPROLOL 5MG IV GIVEN
--- NOTE | 2023-11-21 09:50 | PC.NURSE ---
TC TO DR. LÓPEZ TO UPDATE ON INABILITY TO GET HR DOWN. ORDERED VERAPAMIL 10MG IV TO BE GIVEN. NOTIFIED DESIGN ENGINEERING MANAGER, Alonzo GILLIS RN THAT THIS RN IS UNCOMFORTABLE GIVING THIS MEDICATION. Alonzo GILLIS WILL GIVEN MEDICATION.
--- NOTE | 2023-11-21 10:01 | PC.NURSE ---
VERAPAMIL 10MG IV GIVEN PER S. CARLIN RN. CTA ABLE TO BE PERFORMED WITH PT TOLERATING WELL.
[2023-11-21] MEDS: VERAPAMIL 2.5MG/ML 2ML VIAL 10 MG IV (10:10)
[2023-11-21] MEDS: SODIUM CHLORIDE 0.9% 10ML SYR (RAD ONLY) 10 ML IV (10:10)
[2023-11-21] MEDS: 0.9 % SODIUM CHLORIDE 50 ML VIAL IV (10:10)
[2023-11-21] MEDS: IOPAMIDOL-370 (76%);100ML BOTTLE 85 ML IV (10:10)
--- NOTE | 2023-11-21 10:11 | PC.NURSE ---
PT BROUGHT TO POST OP FOR RECOVERY, NPO C/O, VSS.
[2023-11-21] MEDS: NITROGLYCERIN 0.4MG SL TABLET 0.800000000000000044 MG SL (10:19)
--- NOTE | 2023-11-21 11:00 | PC.NURSE ---
VSS, NO C/O AT THIS TIME. TO DISCHARGE HOME.
== END 2023-11-21 23:59 | disposition home or self-care (01) ==
PROVIDERS: PCP Internal Medicine Adolescent Medicine; Visit Provider Physician Assistant
DX: R06.00 Dyspnea, unspecified (principal); R00.0 Tachycardia, unspecified; R94.31 Abnormal electrocardiogram [ECG] [EKG]; I10 Essential (primary) hypertension
CPT/HCPCS: 75571; 75574; 80048; Q9967

== ENCOUNTER 2023-12-04 08:27 | Day surgery (SDC) | payer OTHER, SELFPAY ==
[2023-12-04] VITALS (14 sets, daily range): BP systolic 90–152; BP diastolic 56–93; PULSE 56–94; RESP 17–19; TEMP 36.6–36.7; O2SAT 97–98; BMI 45.7
--- NOTE | 2023-12-04 07:21 | IR_ITS ---
APPROVED REPORT Patient Location: Outpatient Network Program Manager: LELE Sandoval RT (R) PROCEDURES Selective coronary angiogram Drug-eluting stent deployment to the proximal mid and distal chronically occluded right coronary artery Intravascular ultrasound to the right coronary artery FFR angiography to the LAD INDICATION Angina pectoris, Chronically occluded right coronary artery, Angiographic ambiguity involving the mid LAD Informed consent was obtained prior to the procedure. COMPLICATIONS NONE Estimated Blood Loss: LESS THAN 10 ML TECHNIQUE One percent lidocaine used to anesthetize the right anterior aspect of the wrist. The right radial artery was accessed via the Seldinger technique. A 6 [place] sheath was placed in the right radial artery. 2.5 mg of Verapamil, 800 mcg of nitroglycerin, 1mg Lidocaine and 5000 U Heparin were given through the arterial sheath. The papa catheter was also used to perform selective coronary angiogram. At the end of the diagnostic angiogram therapeutic heparin was administered giving a therapeutic ACT and the guide catheter was placed in the right coronary artery followed by Choice PT extra-support wire being placed down the chronically occluded right coronary artery. A 2 mm x 12 mm balloon was used to open the chronic occlusion and restore flow. Following this a 2.5 x 38 mm Caleb frontier stent was placed in the distal right coronary artery extending back to the proximal segment and initially deployed at 14 trudy. An additional 2.25 x 12 mm Corry frontier stent was placed distal to the for stent yet still overlapping and deployed at 18 trudy. The balloon was brought back and deployed at 24 trudy throughout the 2.5 mm stent. Following this a 3 mm x 12 mm noncompliant balloon was deployed at 20 and 24 trudy in the distal portion of the 2.5 mm stent and brought back and deployed at 24 trudy throughout the entire 2.5 mm stent. A 3.5 x 22 mm Corry frontier stent was then deployed proximal to the 2.5 mm stent yet still overlapping it and deployed at 20 rtudy. Following this intravascular ultrasound probe was advanced which demonstrated excellent expansion of the stent and excellent apposition and sizing of the stent throughout the right coronary artery. Following this the wire was pulled back 800 mcg of intracoronary nitroglycerin was administered given the wide patency of the right coronary artery. DARLEEN 0 flow was present at the beginning of the procedure with DARLEEN-3 flow at the end of the procedure. Following this a JL 3 guide catheter was exchanged and used to perform left coronary artery angiography. Cath works FFR angiography was performed which demonstrated an FFR index of 0.9 involving the mid LAD. At this point the apparatus was removed the sheath was removed and hemostasis was achieved using TR banding patient was transferred to the postop holding in stable condition ANGIOGRAPHIC RESULTS The left main artery Normal The left anterior descending artery Was initially accompanied by DARLEEN II flow however with subsequent injections flow improved. The proximal LAD has a concentric 30% stenosis with the mid LAD as a 15 mm concentric 50% stenosis. DARLEEN-3 flow was present following several contrast injections The circumflex artery Is codominant and has mild diffuse 10% luminal irregularities The right coronary artery This codominant has a proximal 50 to 60% stenosis and then occluded immediately distal to the RV marginal branch. Following revascularization there was wide patency of the proximal mid and distal right coronary artery with inline flow into the posterior descending artery The DHALIWAL ventriculogram reveals Was not performed The left ventricular end-diastolic pressure Was not measured IMPRESSION Chronically occluded right coronary artery Successful reconstruction of the right coronary artery 50% and then 100% occlusion reduced to 0% with 3 contiguous drug-eluting stents improving DARLEEN 0 flow to DARLEEN-3 flow Mild and moderate disease in the proximal and mid LAD respectively creating an FFR index of 0.90 Evidence of endothelial dysfunction involving the LAD and right coronary PLAN 1. Effient 10 mg daily plus aspirin 81 mg daily 2. Uptitrate rosuvastatin to achieve an LDL goal of less than 55 3. Avoidance of pop and carbonated drinks 4. Addition of Imdur 30 mg daily for endothelial dysfunction 5. Change metoprolol to Coreg CR 20 mg daily 6. At this point I do not recommend diuretics given the purported heavy usage of carbonated soft drinks. If these are withheld this would likely decrease LVEDP and improve coronary flow 7. Cardiac rehabilitation 8. Exercise weight loss 9. Recommend sleep study Electronically signed by : Devan Fulton MD 12/04/2023 13:17:48
[2023-12-04 09:05] LABS: Basophils % 0.4 % (0.1-2.0); Eosinophils # 0.1 K/mm3 (0.0-0.4); Eosinophils % 1.3 % (0.1-12.0); Hematocrit 53.3 % (42.0-52.0); Hemoglobin 16.6 g/dL (14.1-18.0); Lymphocytes # 2.1 K/mm3 (0.7-4.5); Lymphocytes % 25.2 % (10-50); Mean Corpuscular HGB Conc 31.1 g/dL (31.8-35.4); Mean Corpuscular Hemoglobin 28.4 pg (27.0-31.2); Mean Corpuscular Volume 91.4 fl (80-94); Mean Platelet Volume 8.6 fl (7.4-10.4); Monocytes # 0.5 K/mm3 (0.1-1.0); Monocytes % 6.4 % (1.7-9.3); Neutrophils # 5.6 K/mm3 (1.8-7.8); Neutrophils % 66.7 % (37.0-80.0); Platelet Count 240 K/mm3 (142-424); Red Blood Count 5.83 M/mm3 (4.60-6.20); Red Cell Distribution Width 14.2 % (11.5-17.5); White Blood Count 8.4 K/mm3 (4.8-10.8)
[2023-12-04 09:08] LABS: Chloride 104 mmol/L (98-107)
[2023-12-04 09:09] LABS: Potassium 4.2 mmoL/L (3.5-5.1); Sodium 138 mmol/L (136-145)
[2023-12-04 09:12] LABS: Anion Gap 9.2 mEq/L (5-15); Blood Urea Nitrogen 17 mg/dl (9-20); Calcium 9.2 mg/dl (8.4-10.2); Carbon Dioxide 29 mmol/L (22.0-30.0); Creatinine Clearance Estimated 72 mL/min (50-200); Estimated Glomerular Filt Rate 64 ml/min (>60); GFR (African American) 78 ML/MIN (>60); Glucose 98 mg/dl (74-100)
[2023-12-04] MEDS: 0.9 % SODIUM CHLORIDE 500 ML 25 ML IV (10:52)
[2023-12-04] MEDS: HEPARIN 1,000 UNITS/ML 10ML VIAL (CATH LAB) 10000 UNIT IV ×2 (10:52→11:41)
[2023-12-04] MEDS: diphenhydrAMINE 50MG/ML VIAL 50 MG IV (10:52)
[2023-12-04] MEDS: HEPARIN 1,000 UNITS/500ML NS (CATH LAB) 3000 UNIT IV (10:52)
[2023-12-04] MEDS: LIDOCAINE 1% 10ML MDV 20 ML IJ (10:52)
[2023-12-04] MEDS: VERAPAMIL 2.5MG/ML 2ML VIAL 2.5 MG IV (10:53)
[2023-12-04] MEDS: NITROGLYCERIN 800MCG/8ML SYR (CATH LAB) 800 MCG IA ×2 (10:53→11:55)
[2023-12-04] MEDS: FENTANYL 100MCG/2ML VIAL 50 MCG IV (11:17)
[2023-12-04] MEDS: MIDAZOLAM HCL 1MG/1ML 5ML VIAL 1 MG IV (11:17)
[2023-12-04] MEDS: MIDAZOLAM 2MG/2ML VIAL 1 MG IV ×2 (11:50→12:02)
[2023-12-04] MEDS: PRASUGREL 10MG TAB 60 MG PO (11:57)
[2023-12-04 13:21] LABS: CATHL Activated Clotting Time > 400 SEC (74-125)
== END 2023-12-04 15:42 | disposition home or self-care (01) ==
PROVIDERS: PCP Internal Medicine Adolescent Medicine; Visit Provider Internal Medicine
DX: I20.89 Other forms of angina pectoris (principal); I10 Essential (primary) hypertension; R93.1 Abnormal findings on diagnostic imaging of heart and coronary circulation; R94.31 Abnormal electrocardiogram [ECG] [EKG]; I15.0 Renovascular hypertension; Z79.899 Other long term (current) drug therapy
CPT/HCPCS: 36252; 80048; 85025; 85347; 92928; 92978; 93458; 93571; 99152; 99153; C1725; C1760; C1769; C1876; C9600; J1644

== ENCOUNTER 2023-12-23 11:00 | Outpatient (RCR) | payer OTHER, SELFPAY | END 2024-01-17 15:00 | disposition home or self-care (01) | LOC: PT 11:00 | PROVIDERS: Visit Provider Internal Medicine | DX: I25.10 Atherosclerotic heart disease of native coronary artery without angina pectoris (principal); Z95.5 Presence of coronary angioplasty implant and graft | CPT/HCPCS: 93798 ==

== ENCOUNTER 2024-02-18 14:35 | Outpatient (CLI) | payer OTHER, SELFPAY ==
[2024-02-18 16:04] LABS: Alanine Aminotransferase 19 U/L (12-78); Albumin Level 3.9 g/dl (3.5-5.0); Anion Gap 16.2 mEq/L (5-15); Aspartate Amino Transferase 26 U/L (17-59); Bilirubin,Unconjugated 0.3 mg/dL (0.0-1.1); Blood Urea Nitrogen 19 mg/dl (9-20); Calcium 8.9 mg/dl (8.4-10.2); Carbon Dioxide 25 mmol/L (22.0-30.0); Chloride 102 mmol/L (98-107); Chol/HDL Ratio 2.1 (1-3.5); Cholesterol 122 mg/dl (140-200); Estimated Glomerular Filt Rate 64 ml/min (>60); GFR (African American) 78 ML/MIN (>60); Glucose 102 mg/dl (74-100); HDL Cholesterol 59 mg/dl (40-60); Potassium 4.2 mmoL/L (3.5-5.1); Sodium 139 mmol/L (136-145); Total Protein,Serum 6.4 g/dl (6.3-8.2); Triglycerides 210 mg/dl (30-150); VLDL Cholesterol 42 mg/dL (0-40)
[2024-02-18 16:15] LABS: Direct LDL Cholesterol 45.34 mg/dL (100-129)
[2024-02-18 16:25] LABS: Troponin I < 0.01 ng/ml (0.00-0.034)
[2024-02-18 16:31] LABS: Alkaline Phosphatase 91 U/L (38-126); Bilirubin,Direct 0.1 mg/dl (0.0-0.4); Bilirubin,Indirect 0.3 mg/dL (0.0-0.9); Bilirubin,Total 0.4 mg/dl (0.2-1.3)
== END 2024-02-18 23:59 | disposition home or self-care (01) ==
LOC: LAB 14:35
PROVIDERS: PCP Internal Medicine Adolescent Medicine; Visit Provider Physician Assistant
DX: R07.9 Chest pain, unspecified (principal); I25.10 Atherosclerotic heart disease of native coronary artery without angina pectoris; I10 Essential (primary) hypertension; Z79.899 Other long term (current) drug therapy
CPT/HCPCS: 36415; 80048; 80061; 80076; 84484

== ENCOUNTER 2024-02-26 10:54 | Outpatient (CLI) | payer OTHER, SELFPAY ==
--- NOTE | 2024-02-26 10:58 | NM_ITS ---
APPROVED REPORT Exam: Nuclear Stress Test Indication: CAD, 3 STENTS, OBESITY, HTN, HYPERLIPIDEMIA, C.P., SOB, ABN EKG Patient Location: Outpatient Stress Tech: Vianney Malagon CT Tech:Porsche Elizabeth LELE RT (R)(N)(M) Ht: 5 ft 8 in Wt: 282 lbs HR: 67 bpm BP: 104/74 mmHg BSA: 2.36 m2 TID: 1.01 BMI: 42.8 History: CAD, 3 STENTS, OBESITY, HTN, HYPERLIPIDEMIA, C.P., SOB, ABN EKG Procedure: Patient exercised on Navin protocol 8:06 minutes and sec, resting heart rate 67 bpm, resting blood pressure 104/74 mmHg, with exercise maximum heart rate achived was 149 bpm which is 87 % of the maximum predicted heart rate and blood pressure was 168/80 mmHg. Test was stopped due to FATIGUE. Patient denied any complaint of chest pain. Patient has exercise capacity, achieved 10.1 METs of workload on treadmill, the blood pressure response to exercise was . Cardiac Stress and Resting SPECT Images: Cardiac Stress and Resting SPECT images were obtained using technetium 99m Myoview 32.3 mCi stress and 10.77 mCi at rest. Resting and stress imaging in supine and prone positions demonstrate no evidence of fixed or reversible perfusion defects. Gated imaging demonstrates normal global and regional LV systolic function. LVEF is calculated at 65%. Conclusion: No evidence of fixed or reversible perfusion defects. Gated imaging demonstrates normal global and regional LV systolic function. LVEF is calculated at 65%. Electronically signed by : Natalia Ritchie MD 02/26/2024 15:08:14
[2024-02-26] MEDS: SODIUM CHLORIDE 0.9% 10ML SYR (RAD ONLY) 10 ML IV ×2 (11:15→12:30)
[2024-02-26] MEDS: ISOTOPE MYOVIEW (PER STUDY) 1 DOSE IV (13:38)
--- NOTE | 2024-02-26 14:27 | CA_ITS ---
APPROVED REPORT Exam: Exercise Treadmill Technologist: Vianney Malagon Ht: 5 ft 8 in Wt: 296 lbs BSA: 2.41 m2 HR: 67 bpm BP: 104/74 mmHg Indications: Abnormal ekg, Chest pain Medical History Medications: Isosorbide,,,,, Aspirin,,,,, Carvedilol,,,,, Flonase,,,,, Ramipril,,,,, Montelukast,,,,, Nitroglycerin,,,,, Magnesium OXIDE,,,,, RoSUVASTATIN,,,,, Fexofenadine,,,,, SeMaglutide,,,,, Prasurgrel,,,,, Stress Test Details Test: Navin HR Resting HR: 76 bpm Max Heart Rate (APMHR): 171 bpm Max HR Achieved: 149 bpm Target HR (85% APMHR): 145 bpm % of APMHR: 87 Recovery HR: 102 bpm HR response to stress: Normal HR response to stress BP Resting BP: 104.0/74.0 mmHg Max BP: 168.0/80.0 mmHg Recovery BP: 125.0/89.0 mmHg BP response to stress: Normal blood pressure response to stress. ECG Resting ECG: Normal sinus rhythm, low voltage QRS Stress ECG: < 0.[address] depression Arrhythmia: None Clinical Exercise duration: 08:06 min Highest Stage Achieved: Exercise capacity: 10.1 METs Overall Exercise Capacity for Age: Average Stress ECG Conclusion Average exercise capacity. Patient exercised 8:06 on Navin Protocol. Test stopped due to shortness of air. The patient has normal HR and BP response to exercise. Symptoms: No chest pain. Arrhythmias/Ectopy: Occasional PVCs ST-T Changes: < 0.[address] depression Conclusoin: Average exercise capacity. Normal GXT. Myoview images reported separately. Test Summary REST . . . . . . . Sitting REST . . . . . . . Standing REST 05:55 0.0 0.0 76 . . . . Stage 1 01:00 10.0 1.7 96 . . . . Stage 1 02:00 10.0 1.7 103 . . . . Stage 1 03:00 10.0 1.7 103 . 136/ 80 . . Stage 2 01:00 12.0 2.5 115 . . . . Stage 2 02:00 12.0 2.5 122 . . . . Stage 2 03:00 12.0 2.5 128 . 168/ 80 . . Stage 3 01:00 14.0 3.4 138 . . . . Stage 3 . . . . . . . Myoview Injected Stage 3 02:00 14.0 3.4 148 . . . . Stage 3 02:06 14.0 3.4 148 . . . Stop exercise at 08:06 RECOVERY 01:00 0.0 0.0 125 . . . . RECOVERY 02:00 0.0 0.0 104 . . . . RECOVERY 03:00 0.0 0.0 109 . 139/ 89 . . RECOVERY 04:00 0.0 0.0 101 . 125/ 85 . . RECOVERY 05:00 0.0 0.0 101 . 125/ 85 . . RECOVERY 05:31 0.0 0.0 98 . 122/ 80 . . Electronically signed by : Natalia Ritchie MD 02/26/2024 15:07:14
== END 2024-02-26 23:59 | disposition home or self-care (01) ==
LOC: RAD 10:55
PROVIDERS: PCP Internal Medicine Adolescent Medicine; Visit Provider Physician Assistant
DX: R07.9 Chest pain, unspecified (principal); I25.10 Atherosclerotic heart disease of native coronary artery without angina pectoris; R94.31 Abnormal electrocardiogram [ECG] [EKG]
CPT/HCPCS: 78452; 93017; 93018; A9502

== ENCOUNTER 2024-03-03 07:28 | Outpatient (CLI) | payer OTHER, SELFPAY ==
[2024-03-03 08:54] LABS: Anion Gap 14.2 mEq/L (5-15); Blood Urea Nitrogen 18 mg/dl (9-20); Calcium 9.5 mg/dl (8.4-10.2); Carbon Dioxide 29 mmol/L (22.0-30.0); Chloride 100 mmol/L (98-107); Estimated Glomerular Filt Rate 79 ml/min (>60); GFR (African American) 96 ML/MIN (>60); Glucose 89 mg/dl (74-100); Potassium 4.2 mmoL/L (3.5-5.1); Sodium 139 mmol/L (136-145)
== END 2024-03-03 23:59 | disposition home or self-care (01) ==
LOC: LAB 07:28
PROVIDERS: PCP Internal Medicine Adolescent Medicine; Visit Provider Physician Assistant
DX: I10 Essential (primary) hypertension (principal); Z79.899 Other long term (current) drug therapy
CPT/HCPCS: 36415; 80048; 83735

== ENCOUNTER 2024-03-20 09:12 | Emergency (ER) | payer OTHER, SELFPAY ==
[2024-03-20 09:20] VITALS: BP 117/72; PULSE 76; RESP 18; TEMP 36.8; O2SAT 97; BMI 42.8
--- NOTE | 2024-03-20 09:26 | ED_ITS ---
Discharge Plan Disposition Patient Disposition: Home, Self-Care Condition: Good Prescriptions Prescriptions: New prednisone 20 mg tablet 20 mg PO BID 5 Days Qty: 10 0RF pseudoephedrine HCl [12 Hour Decongestant] 120 mg Tablet Extended Release 120 mg PO Q12H Qty: 20 0RF amoxicillin-pot clavulanate 875-125 mg Tablet 1 tab PO Q12H Qty: 20 0RF No Action fexofenadine [Rose Allergy] 180 mg tablet 180 mg PO DAILY fluticasone propionate [Flonase Allergy Relief] 50 mcg/actuation spray,suspension 1 spray intranasal DAILY Rx Instructions: administer into each nostril valacyclovir 1 gram tablet 1,000 mg PO BID PRN (Reason: .) aspirin [Adult Aspirin Regimen] 81 mg tablet,delayed release (DR/EC) 81 mg PO DAILY Qty: 30 2RF rosuvastatin [Crestor] 20 mg tablet 20 mg PO DAILY 30 Days Qty: 90 3RF ramipril 5 mg capsule 5 mg PO DAILY Qty: 90 3RF nitroglycerin 0.4 mg tablet, sublingual 0.4 mg sublingual Q5M PRN (Reason: chest pain) Qty: 30 2RF Rx Instructions: do not exceed 3 doses per episode isosorbide mononitrate 30 mg tablet extended release 24 hr 30 mg PO BID Qty: 60 3RF clopidogrel 75 mg tablet 75 mg PO DAILY Qty: 30 2RF Wegovy 0.25 mg/0.5 mL pen injector 0.25 mg SQ WEEKLY Rx Instructions: administer weeks 1 through 4 of therapy magnesium oxide 400 mg (241.3 mg magnesium) tablet See Rx Instructions .ROUTE .COMPLEX Patient Comments: TAKE 1 TABLET BY MOUTH ONCE A DAY AT BEDTIME Rx Instructions: TAKE 1 TABLET BY MOUTH ONCE A DAY AT BEDTIME montelukast 10 mg Tablet 10 mg PO DAILY carvedilol [Coreg] 6.25 mg Tablet 6.25 mg PO BID 30 Days Qty: 60 3RF Rx Instructions: must administer with a meal/food Referrals Follow up/Referrals: Nikolai Mcclellan MD [Primary Care Provider] - See instructions Clinical Impressions Clinical Impression: Otitis media Instructions Patient Instructions: DI for Otitis Media (Middle Ear Infection)-Child Discharge ED Provider: Collette Kaiser [facility] [place] HPI General Stated complaint: Pain in L ear Time Seen by Provider: 03/20/24 09:33 History of Present Illness Provider Complaint: Left ear pain X 1 day. No fever. Pain in left side of face. Onset (ago): day(s) (1) Location: face Relieving factors: none Exacerbating factors: none Associated symptoms: denies other symptoms Treatments prior to arrival: none Related Data Home Medications Medication Instructions Recorded Confirmed montelukast 10 mg tablet 10 mg PO DAILY . 12/16/22 03/03/24 fexofenadine 180 mg tablet 180 mg PO DAILY 08/19/23 03/03/24 (Rose Allergy) fluticasone propionate 50 1 spray intranasal DAILY 08/19/23 03/03/24 mcg/actuation nasal spray,suspension (Flonase Allergy Relief) valacyclovir 1 gram tablet 1,000 mg PO BID PRN . 08/19/23 03/03/24 magnesium oxide 400 mg (241.3 mg See Rx Instructions .Route .COMPLEX 10/10/23 03/03/24 magnesium) tablet semaglutide (weight loss) 0.25 0.25 mg SQ WEEKLY 11/05/23 03/03/24 mg/0.5 mL subcutaneous pen injector (Wegovy) Previous Rx's Medication Instructions Recorded aspirin 81 mg tablet,delayed 81 mg PO DAILY #30 tabs 11/26/23 release (Adult Aspirin Regimen) carvedilol 6.25 mg tablet (Coreg) 6.25 mg PO BID 30 days #60 tabs 12/04/23 nitroglycerin 0.4 mg sublingual 0.4 mg sublingual Q5M PRN chest 01/14/24 tablet pain #30 tabs ramipril 5 mg capsule 5 mg PO DAILY #90 caps 01/14/24 rosuvastatin 20 mg tablet (Crestor) 20 mg PO DAILY 30 days #90 tabs 01/14/24 clopidogrel 75 mg tablet 75 mg PO DAILY #30 tabs 03/03/24 isosorbide mononitrate 30 mg 30 mg PO BID #60 tabs 03/03/24 tablet,extended release 24 hr amoxicillin 875 mg-potassium 1 tab PO Q12H #20 tabs 03/20/24 clavulanate 125 mg tablet prednisone 20 mg tablet 20 mg PO BID 5 days #10 tabs 03/20/24 pseudoephedrine HCl 120 mg 120 mg PO Q12H #20 tabs 03/20/24 tablet,extended release (12 Hour Decongestant ER) Allergies Allergy/AdvReac Type Severity Reaction Status Date / Time Cephalosporins Allergy Intermediate Hives Verified 03/20/24 09:26 [facility] Disclaimer: The information contained in this section may have been updated after the patient was seen, as this information can be updated by other users. Medical History Atypical angina Abnormal findings on diagnostic imaging of heart and coronary circulation No significant past medical history History of gastroesophageal reflux (GERD) Surgical History History of tonsillectomy Family History Other Diabetes Hyperlipidemia Hypertension No significant family history Obesity Stroke Social History Smoking Status: Never smoker alcohol intake: never substance use type: denies use current occupational status: employed Travel in the last 8 weeks: None household members: family housing: house lives independently: Yes marital status: caffeine: Yes special todd needs: No agree to transfusion: No do you feel safe at home: Yes victim of physical abuse: No victim of emotional abuse: No victim of sexual abuse: No would you like helpful sources: No ROS Obtained: Yes All systems reviewed & no additional complaints except as documented ENT Ears, Nose, Mouth, and Throat: Reports otalgia, Reports sinus pain and Reports sinus pressure Physical Exam General General appearance: alert and in no apparent distress Head Head exam: atraumatic, normocephalic and normal inspection Eye Eye exam: Present normal appearance, PERRL and EOMI ENT ENT exam: Present normal exam, normal oropharynx, mucous membranes moist and normal external ear exam Expanded ENT Exam TM/Canal exam: Bilateral TM: erythema, bulging and effusion Nose exam: Present sinus tenderness Neck Neck exam: Present normal inspection, full ROM and trachea midline; Absent meningismus or lymphadenopathy Respiratory Respiratory exam: Present normal lung sounds bilaterally; Absent respiratory distress Cardiovascular Cardiovascular exam: Present regular rate and normal rhythm; Absent JVD Extremities Exam Extremities exam: Present normal inspection, full ROM and normal capillary refill; Absent calf tenderness Neurological Exam Neurological exam: Present alert and oriented X3 Psychiatric Psychiatric exam: Present normal affect and normal mood Skin Skin exam: Present warm, dry, intact and normal color Lymphatic Lymphatic Findings: no adenopathy Medical Decision Making Jamie Inquiry Pt receiving controlled substance: No
[2024-03-20 09:43] VITALS: BP 117/72; PULSE 76; RESP 18; TEMP 36.8; O2SAT 97
== END 2024-03-20 09:43 | disposition home or self-care (01) ==
PROVIDERS: Emergency Provider Physician Assistant; PCP Internal Medicine Adolescent Medicine
DX: H66.93 Otitis media, unspecified, bilateral (principal)
CPT/HCPCS: 99212; 99214; G0463

== ENCOUNTER 2024-09-10 11:18 | Outpatient (CLI) | payer OTHER, SELFPAY ==
--- NOTE | 2024-09-10 | CA_ITS ---
APPROVED REPORT Exam: Pharmacologic Technologist: Key Phelan Ht: 5 ft 8 in Wt: 302 lbs BSA: 2.44 m2 HR: 83 bpm BP: 111/76 mmHg Rhythm: NSR, cannot R/O old anterior [place] Medical History Medications: Carvedilol, Nitroglycerin Stress Test Details HR Resting HR: 83 bpm Max Heart Rate (APMHR): 170.870111 bpm Target HR (85% APMHR): 144.139728 bpm Recovery HR: 90 bpm BP Resting BP: 111.0/76.0 mmHg Recovery BP: 118.0/81.0 mmHg ECG Resting ECG: NSR, cannot R/O old anterior [place] Stress ECG Conclusion During lexiscan pt experinced head discomfort, mild SOA and stomach discomfort. No CP noted. No arrhythmias noted. No significant ST changes. Unremarkable lexiscan stress. Electronically signed by : Natalia Ritchie MD 09/13/2024 23:22:42
--- NOTE | 2024-09-10 11:19 | NM_ITS ---
APPROVED REPORT Exam: Nuclear Stress Test Indication: soa Patient Location: Outpatient Stress Tech: Key LOZADA Tech:Jinny LELE Salas RT(R)(N) Ht: 5 ft 8 in Wt: 295 lbs HR: 79 bpm BP: 111/76 mmHg BSA: 2.41 m2 TID: 1.19 BMI: 44.8 History: soa Procedure: Patient received 0.4 mg of intravenous Lexiscan, resting heart rate 79 bpm, resting blood pressure 111/76 mmHg, with Lexiscan maximum heart rate achieved was 99 bpm which is 85 % of the maximum predicted heart rate and blood pressure was 125/79 mmHg. Cardiac Stress and Resting SPECT Images: Cardiac Stress and Resting SPECT images were obtained using technetium 99m Myoview 32.6 mCi stress and 10.57 mCi at rest. Resting and stress imaging in supine and prone positions demonstrate no evidence of fixed or reversible perfusion defects. Gated imaging demonstrates normal global and regional LV systolic function. LVEF is calculated at 58%. Conclusion: No evidence of fixed or reversible perfusion defects. Gated imaging demonstrates normal global and regional LV systolic function. LVEF is calculated at 58%. Electronically signed by : Natalia Ritchie MD 09/13/2024 23:23:50
[2024-09-10] MEDS: REGADENOSON 0.4MG/5ML SYRINGE 0.4 MG IV (13:32)
[2024-09-10] MEDS: ISOTOPE MYOVIEW (PER STUDY) 1 DOSE IV (13:32)
[2024-09-10] MEDS: SODIUM CHLORIDE 0.9% 10ML SYR (RAD ONLY) 10 ML IV ×2 (13:32→13:33)
== END 2024-09-10 23:59 | disposition home or self-care (01) ==
LOC: RAD 11:19
PROVIDERS: PCP Internal Medicine Adolescent Medicine; Visit Provider Physician Assistant
DX: I25.10 Atherosclerotic heart disease of native coronary artery without angina pectoris (principal); R07.9 Chest pain, unspecified; R06.09 Other forms of dyspnea
CPT/HCPCS: 78452; 93017; 93018; A9502; J2785

== ENCOUNTER 2024-09-21 07:05 | Outpatient (CLI) | payer OTHER, SELFPAY ==
[2024-09-21 08:24] LABS: Albumin Level 3.9 g/dl (3.5-5.0); Chloride 103 mmol/L (98-107)
[2024-09-21 08:25] LABS: Potassium 4.5 mmoL/L (3.5-5.1); Sodium 131 mmol/L (136-145)
[2024-09-21 08:27] LABS: Anion Gap 4.5 mEq/L (5-15); Bilirubin,Unconjugated 0.1 mg/dL (0.0-1.1); Blood Urea Nitrogen 20 mg/dl (9-20); Carbon Dioxide 28 mmol/L (22.0-30.0); Estimated Glomerular Filt Rate 89 ml/min (>60); GFR (African American) 108 ML/MIN (>60); Total Protein,Serum 6.3 g/dl (6.3-8.2)
[2024-09-21 08:28] LABS: Alanine Aminotransferase 28 U/L (12-78); Alkaline Phosphatase 102 U/L (38-126); Aspartate Amino Transferase 36 U/L (17-59); Bilirubin,Direct 0.4 mg/dl (0.0-0.4); Bilirubin,Indirect 0.1 mg/dL (0.0-0.9); Bilirubin,Total 0.5 mg/dl (0.2-1.3); Calcium 8.9 mg/dl (8.4-10.2); Chol/HDL Ratio 4.7 (1-3.5); Cholesterol 232 mg/dl (140-200); Glucose 95 mg/dl (74-100); HDL Cholesterol 49 mg/dl (40-60); Triglycerides 333 mg/dl (30-150); VLDL Cholesterol 67 mg/dL (0-40)
[2024-09-21 08:39] LABS: Direct LDL Cholesterol 97.85 mg/dL (100-129)
== END 2024-09-21 23:59 | disposition home or self-care (01) ==
LOC: LAB 07:06
PROVIDERS: PCP Internal Medicine Adolescent Medicine; Visit Provider Physician Assistant
DX: R07.9 Chest pain, unspecified (principal); I25.10 Atherosclerotic heart disease of native coronary artery without angina pectoris; R06.09 Other forms of dyspnea; I10 Essential (primary) hypertension
CPT/HCPCS: 36415; 80048; 80061; 80076

== ENCOUNTER 2025-03-30 07:15 | Outpatient (CLI) | payer OTHER, SELFPAY ==
--- OUTSIDE RECORDS SUMMARY | 2025-03-30 07:19 | XMS_ITS | Clinical Summary ---
Author Organization Healthcare Address [address] [place] [address] Care Team Providers Care Threading Machine Feeder Automatic Name Role Phone Nikolai Mcclellan MD Primary Care Provider + [phone] Allergies Active Allergy Reactions Criticality Noted Date Comments Cephalosporins Shortness of breath High 05/28/2024 Immunizations Immunization Administration Dates Next Due Hep B, adult 12/19/2006,06/20/2006,05/14/2006 IPV 12/29/1980 MMR 05/17/2006,06/28/1975 PPD Skin Test (TB Skin Test) 10/13/2008,05/14/20 06 Td (adult), unspecified 12/29/1980 Tdap 10/13/2008 Social History Tobacco Use Types Packs/Day Years Used Date Smoking Tobacco: Never Smokeless Tobacco: Never Tobacco Cessation:Counseling Given: Not Answered Sex and Gender Information Value Date Recorded Sex Assigned at Male 06/17/2024 9:27 AM EDT Legal Sex Male 8:00 PM EDT Gender Identity Male 06/17/2024 9:27 AM EDT Sexual Orientation Straight 06/17/2024 9: 27 AM EDT Last Filed Vital Signs Vital Sign Reading Time Taken Comments Blood Pressure 129/114 05/28/2024 7:59 AM EDT Pulse 95 05/28/2024 7:59 AM EDT Temperature 36.7 C (98.1 F) 05/28/2024 7:59 AM EDT Respiratory Rate 17 05/28/2024 7:59 AM EDT Oxygen Saturation 95% 05/28/2024 7:59 AM EDT Inhaled Oxygen Concentration - - Weight 134 kg (295 lb 10.2 oz) 05/28/2024 4:21 A M EDT Height 175.3 cm (5' 9 ) 04/05/2009 8:25 AM EDT Body Mass Index - - Plan of Treatment Health Maintenance Due Date Last Done Comments [facility]-Depression Screening 1974 [facility]-HIV Screening 1974 [facility]-Hepatitis C Screening 1974 [facility]-/Child/Adol SDOH Screenings 1974 [facility]-IPV Vaccines (2 of 3 - 4-dose series) 01/26/1981 12/29/1980 [facility]- SDOH Screenings 1992 [facility]-Adult SDOH Screenings 1992 [facility]-Pneumococcal Vaccine: 50 + Years (1 of 2 - PCV) 1993 CT Colonography 2019 Colonoscopy 2019 FIT-DNA 2019 FIT 2019 FOBT 2019 Sigmoidoscopy 2019 [facility]-Colorectal Cancer Screening 2019 [facility]-Zoster Vaccines (1 of 2) 2024 [id number] Vaccine ( - 2023- season) 2024 08/11/2021, 11/04/2020, 10/05/2020 [facility]-Influenza Vaccine (Seaso n Ended) 2025 [facility]-DTaP,Tdap,and Td Vaccine s (3 - Td or Tdap) 01/18/2027 01/18/2017, 10/13/2008, 12/29/1980 [facility]-Hepatitis B Vaccines Completed 007, 06/20/2006, 05/14/2006 [facility]-Hepatitis A Vaccines Aged Out 019, 09/12/2018 No longer eligible based on patient's age to complete this topic HPV Vaccines Aged Out No longer eligi ble based on patient's age to complete this topic [facility]-HIB Vaccines Aged Out No longer e ligible based on patient's age to complete this topic [facility]-Rotavirus Vaccines Aged Out No lo nger eligible based on patient's age to complete this topic [place] [address] Care Teams Threading Machine Feeder Automatic Relationship Specialty Start Date End Date Nikolai Mcclellan MD [address] [place] [id number] PCP - General Internal Medicine 05/28/24
[2025-03-30 07:55] LABS: Basophils % 0.7 % (0.1-2.0); Eosinophils # 0.1 Kmm3 (0.0-0.4); Eosinophils % 1.9 % (0.1-12.0); Hematocrit 41.6 % (42.0-52.0); Hemoglobin 13.5 g/dL (14.1-18.0); Immature Granulocytes # 0.01 10^3uL; Immature Granulocytes % 0.2 %; Lymphocytes # 2.1 K/mm3 (0.7-4.5); Lymphocytes % 35.9 % (10-50); Mean Corpuscular HGB Conc 32.5 g/dL (31.8-35.4); Mean Corpuscular Hemoglobin 29.5 pg (27.0-31.2); Mean Platelet Volume 10.7 fl (7.4-10.4); Monocytes # 0.5 K/mm3 (0.1-1.0); Monocytes % 8.4 % (1.7-9.3); Neutrophils # 3.1 K/mm3 (1.8-7.8); Neutrophils % 52.9 % (37.0-80.0); Nucleated Red Blood Cells # 0 10^3/uL; Nucleated Red Blood Cells % 0 %; Platelet Count 234 K/mm3 (142-424); Red Blood Count 4.57 M/mm3 (4.60-6.20); Red Cell Distribution Width 14.3 % (11.5-17.5); Red Cell Distribution Width-SD 47.3 fL; White Blood Count 5.9 K/mm3 (4.8-10.8)
[2025-03-30 08:46] LABS: Free T4 (Free Thyroxine) 1.31 ng/dl (0.78-2.19)
[2025-03-30 08:51] LABS: Chloride 100 mmol/L (98-107); Sodium 135 mmol/L (136-145)
[2025-03-30 08:52] LABS: Potassium 4.7 mmoL/L (3.5-5.1)
[2025-03-30 08:54] LABS: Alanine Aminotransferase 26 U/L (12-78); Alkaline Phosphatase 80 U/L (38-126); Anion Gap 13.7 mEq/L (5-15); Aspartate Amino Transferase 33 U/L (17-59); Bilirubin,Direct 0.3 mg/dl (0.0-0.4); Bilirubin,Indirect 0.2 mg/dL (0.0-0.9); Bilirubin,Total 0.5 mg/dl (0.2-1.3); Bilirubin,Unconjugated 0.3 mg/dL (0.0-1.1); Blood Urea Nitrogen 19 mg/dl (9-20); Calcium 8.7 mg/dl (8.4-10.2); Carbon Dioxide 26 mmol/L (22.0-30.0); Cholesterol 214 mg/dl (140-200); Estimated Glomerular Filt Rate 102 ml/min (>60); GFR (African American) 124 ML/MIN (>60); Glucose 103 mg/dl (74-100); Total Protein,Serum 6.6 g/dl (6.3-8.2); Triglycerides 250 mg/dl (30-150); VLDL Cholesterol 50 mg/dL (0-40)
[2025-03-30 08:55] LABS: Chol/HDL Ratio 4.3 (1-3.5); HDL Cholesterol 50 mg/dl (40-60); Magnesium 2.2 mg/dl (1.6-2.3)
[2025-03-30 09:06] LABS: Direct LDL Cholesterol 84.84 mg/dL (100-129)
== END 2025-03-30 23:59 | disposition home or self-care (01) ==
LOC: LAB 07:17 → RT 07:35
PROVIDERS: PCP Internal Medicine Adolescent Medicine; Visit Provider Nurse Practitioner
DX: I49.1 Atrial premature depolarization (principal); I49.3 Ventricular premature depolarization; I25.10 Atherosclerotic heart disease of native coronary artery without angina pectoris; R94.31 Abnormal electrocardiogram [ECG] [EKG]; I10 Essential (primary) hypertension
CPT/HCPCS: 36415; 80048; 80061; 80076; 83735; 84439; 84443; 85025; 93270

== ENCOUNTER 2025-04-15 12:49 | Outpatient (CLI) | payer OTHER, SELFPAY ==
--- OUTSIDE RECORDS SUMMARY | 2025-04-15 12:51 | XMS_ITS | Clinical Summary ---
Author Organization Healthcare Address [address] [place] [address] Care Team Providers Care Pattern Changer Name Role Phone Nikolai Mcclellan MD Primary Care Provider + [phone] Allergies Active Allergy Reactions Criticality Noted Date [...] 2019 [facility]-Zoster Vaccines (1 of 2) 2024 [id number] Vaccine ( - 2023- season) 2024 08/11/2021, 11/04/2020, 10/05/2020 [facility]-Influenza Vaccine (#1) 2025 [facility]-DTaP,Tdap,and Td Vaccine s (3 - [...] patient's age to complete this topic Insurance [facility] Care Teams Pattern Changer Relationship Specialty Start Date End Date Nikolai Mcclellan MD [address] [place] [address] PCP - General Internal Medicine 05/28/24
--- NOTE | 2025-04-15 13:00 | CA_ITS ---
APPROVED REPORT EXAM: Comprehensive 2D, Doppler, and color-flow Echocardiogram Culinary Artist: Jerica Mcgraw CRT Ht: 5 ft 8 in Wt: 303lbs BSA: 2.44 BP: 122/86 mmHg Indications: Chest Pain, Shortness of Breath, 3 stents 2D Dimensions LA Volume 33.40 mL LA Volume Index 13.69 mL/m2 (M/F) 16-34 M-Mode Dimensions RVDd 3.10 cm (0.9-2.6) LA Diam 3.35 cm (1.9-4.0) LVDd 4.31 cm (3.5-5.7) LVDs 2.90 cm (3.5-5.7) IVSd 2.01 cm (0.6-1.1) PWd 1.01 cm (0.6-1.1) EF (Teich) 61.40% FS 32.70% EDV (Teich) 83.50 mL TAPSE 1.79 (<1.7) ESV (Teich) 32.20 mL LV Diastology E Decel Time 377 (160-240 msec) E/A Ratio 0.61 MED A' 7.60 cm/s LAT A' 10.20 cm/s Aortic Valve ADOLFO Index 1.29 cm2/m2 AoV Peak David. 130.0 (50-130 cm/s) AO Peak GR. 6.80 mmHg AO Mean GR. 4.10 (<5 mmHg) AO VTI 22.3 (18-25 cm) ADOLFO (VTI) 3.22 (2.5-4.5 cm2) Mitral Valve MV A Velocity 81.0 (40-130 cm/s) E/A Ratio 0.61 Pulmonary Valve PV Peak Velocity 157.0 (50-150 cm/s) Tricuspid Valve TR P. Velocity 230.00 cm/s RAP Estimate 10.00 mmHg RVSP 31.20 mmHg Left Ventricle The left ventricle is normal size. The left ventricular systolic function is normal. The left ventricular ejection fraction is within the normal range. Proximal septal thickening is present. There is normal LV segmental wall motion. Transmitral Doppler flow pattern suggests impaired LV relaxation. LVEF is 60%. Right Ventricle Right ventricle is moderately dilated. The right ventricular systolic function is mildly reduced. Atria The left atrium size is normal. Right atrium is moderately dilated. There is no Doppler evidence of interatrial shunt. Aortic Valve The aortic valve opens well. There is no aortic valvular stenosis. No aortic regurgitation is present. Mitral Valve The mitral valve is normal in structure. No evidence of mitral valve stenosis. Mild mitral regurgitation. Tricuspid Valve Tricuspid valve is grossly normal in structure and function. Trace tricuspid regurgitation. There is insufficient TR jet to estimate RVSP. Pulmonic Valve The pulmonary valve is normal in structure. Trace pulmonic regurgitation. Great Vessels The aortic root is normal in size. IVC is normal in size and collapses >50% with inspiration. Pericardium There is no pericardial effusion. Other Information Study Quality: Technically Difficult Conclusion Technically difficult study due to poor accoustic windows. Normal LV systolic function. Moderate RV dilation with mildly reduced RV function. Moderate RA dilation. Mild MR. Compared to prior study from 06/20/2023, the RV dysfunction is new. Further evaluation, including pulmonary work-up, interatrial shunt evaluation, and sleep study, are suggested if clinically indicated. Electronically signed by : Natalia Ritchie MD 04/24/2025 15:26:11
== END 2025-04-15 23:59 | disposition home or self-care (01) ==
LOC: RT 12:49
PROVIDERS: PCP Internal Medicine Adolescent Medicine; Visit Provider Nurse Practitioner
DX: I34.0 Nonrheumatic mitral (valve) insufficiency (principal); I11.9 Hypertensive heart disease without heart failure; I25.10 Atherosclerotic heart disease of native coronary artery without angina pectoris; I49.1 Atrial premature depolarization; R94.31 Abnormal electrocardiogram [ECG] [EKG]; R93.1 Abnormal findings on diagnostic imaging of heart and coronary circulation
CPT/HCPCS: 93306

== ENCOUNTER 2025-05-06 08:48 | Day surgery (SDC) | payer OTHER, SELFPAY ==
[2025-05-06] VITALS (14 sets, daily range): BP systolic 102–139; BP diastolic 62–93; PULSE 73–88; RESP 18; TEMP 36.9; O2SAT 93–99; BMI 47.0
--- NOTE | 2025-05-06 07:14 | IR_ITS ---
APPROVED REPORT Patient Location: Outpatient Range Conservationist: Dony Wei, RT (R) PROCEDURES Left heart catheterization Left ventriculogram Selective coronary angiogram Intravascular ultrasound to the LAD Drug-eluting stent deployment to the mid LAD INDICATION Coronary artery disease, Angina pectoris, MLA of 2.3 mm??? in the mid LAD Informed consent was obtained prior to the procedure. COMPLICATIONS NONE Estimated Blood Loss: LESS THAN 10 ML TECHNIQUE One percent lidocaine used to anesthetize the right anterior aspect of the wrist. The right radial artery was accessed via the Seldinger technique. A 6 Malagasy sheath was placed in the right radial artery. 2.5 mg of Verapamil, 800 mcg of nitroglycerin, 1mg Lidocaine and 5000 U Heparin were given through the arterial sheath. The JL3 catheter was also used to perform left heart catheterization, left ventriculogram and selective coronary angiogram. At the end of the diagnostic angiogram therapeutic heparin was administered giving a therapeutic ACT and the guide catheter was placed in left main artery followed by Choice PT extra-support wire placed distally. Intravascular ultrasound probe was advanced which demonstrated moderate atheromatous plaque in the proximal segment with MLA's greater than 4 with severe heavy atheromatous plaque throughout the midportion creating an MLA of 2.3 mm???. Because of this a 3 mm x 38 mm Caleb frontier stent was deployed in the midportion at 20 trudy reducing the stenosis. Intravascular ultrasound probe was advanced which demonstrated the stent was slightly undersized in the proximal and midportion with excellent distal transitioning and sizing. A 3.5 x 20 mm noncompliant balloon was deployed at 20 trudy in the proximal portion of the stent. Intravascular ultrasound probe was reinserted which demonstrated much improved proximal stent expansion and sizing with excellent proximal distal transitioning. Spasm occurred both proximally and distally which responded favorably to 800 mcg of intracoronary nitroglycerin. At the end of the procedure the apparatus was removed the sheath was removed and hemostasis was achieved using TR banding patient was transferred to the postop porting in stable condition ANGIOGRAPHIC RESULTS The left main artery Normal The left anterior descending artery Has proximal 40% stenosis with mid vessel heavy plaque burden creating a 90% plaque with distal 30% stenosis. As the LAD wraps the apex there is a concentric 90% stenosis The circumflex artery Large codominant with mild 10% luminal regularities The right coronary artery Codominant with stents in the proximal and mid segment which are widely patent with minimal in-stent restenosis and excellent proximal distal transitioning The DHALIWAL ventriculogram reveals Normal 60% The left ventricular end-diastolic pressure 20 mmHg IMPRESSION Severe mid LAD disease with heavy plaque burden with successful stenting reducing lesion to 0% with 1 drug-eluting stent Persistent severe stenosis in the distal apical LAD which is not appropriate for stenting due to its distal location and along the apical bend Widely patent stents in the proximal and mid codominant right coronary Normal ejection fraction Mildly elevated LVEDP PLAN 1. Effient and aspirin 2. LDL less than 55 3. Exercise weight loss with cardiac rehabilitation 4. Avoidance of tobacco products 5. Treatment of elevated LVEDP 6. As needed nitroglycerin 7. It is not appropriate to stent the distal LAD lesion nor perform angioplasty. This lesion can be the etiology for intermittent exertional angina. This is not amenable to surgical nor percutaneous revascularization Electronically signed by : Devan Fulton MD 05/06/2025 12:09:05
[2025-05-06 09:12] LABS: Hematocrit 41.6 % (42.0-52.0); Hemoglobin 14.0 g/dL (14.1-18.0); Immature Granulocytes % 0.3 %; Mean Corpuscular HGB Conc 33.7 g/dL (31.8-35.4); Mean Corpuscular Hemoglobin 30.7 pg (27.0-31.2); Mean Corpuscular Volume 91.2 fl (80-94); Nucleated Red Blood Cells % 0 %; Platelet Count 267 K/mm3 (142-424); Red Blood Count 4.56 M/mm3 (4.60-6.20); Red Cell Distribution Width-SD 47.2 fL; White Blood Count 7.0 K/mm3 (4.8-10.8)
[2025-05-06 09:30] LABS: Anion Gap 10.2 mEq/L (5-15); Blood Urea Nitrogen 22 mg/dl (9-20); Calcium 9.7 mg/dl (8.4-10.2); Carbon Dioxide 29 mmol/L (22.0-30.0); Chloride 101 mmol/L (98-107); Creatinine Clearance Estimated 85 mL/min (50-200); Creatinine,Serum 1.00 mg/dl (0.66-1.25); Estimated Glomerular Filt Rate 79 ml/min (>60); GFR (African American) 95 ML/MIN (>60); Glucose 104 mg/dl (74-100); Potassium 4.2 mmoL/L (3.5-5.1); Sodium 136 mmol/L (136-145)
[2025-05-06] MEDS: FENTANYL 100MCG/2ML VIAL 50 MCG IV (11:17)
[2025-05-06] MEDS: HEPARIN 1,000 UNITS/500ML NS (CATH LAB) 3000 UNIT IV (11:17)
[2025-05-06] MEDS: MIDAZOLAM HCL 1MG/ML 5ML VIAL 1 MG IV (11:17)
[2025-05-06] MEDS: LIDOCAINE 1% 10ML MDV 10 ML IJ (11:17)
[2025-05-06] MEDS: HEPARIN 1,000 UNITS/ML 10ML VIAL (CATH LAB) 5000 UNIT IV (11:17)
[2025-05-06] MEDS: 0.9 % SODIUM CHLORIDE 500 ML 25 ML IV (11:17)
[2025-05-06] MEDS: VERAPAMIL 2.5MG/ML 2ML VIAL 2.5 MG IV (11:18)
[2025-05-06] MEDS: NITROGLYCERIN 800MCG/8ML SYR (CATH LAB) 800 MCG IA (11:18)
[2025-05-06] MEDS: PRASUGREL 10MG TAB 60 MG PO (12:17)
[2025-05-06 15:16] LABS: CATHL Activated Clotting Time > 400 SEC (74-125)
== END 2025-05-06 15:10 | disposition home or self-care (01) ==
LOC: CATHLAB 08:48
PROVIDERS: PCP Internal Medicine Adolescent Medicine; Visit Provider Internal Medicine
PROC: 4A023N7 Measurement of Cardiac Sampling and Pressure, Left Heart, Percutaneous Approach (ICD-10-PCS; CPT 93452; principal; 2025-05-06 14:00)
DX: I25.118 Atherosclerotic heart disease of native coronary artery with other forms of angina pectoris (principal); I49.1 Atrial premature depolarization; R93.1 Abnormal findings on diagnostic imaging of heart and coronary circulation; R94.31 Abnormal electrocardiogram [ECG] [EKG]; K21.9 Gastro-esophageal reflux disease without esophagitis; R06.00 Dyspnea, unspecified; R53.83 Other fatigue; I10 Essential (primary) hypertension; E66.813 Obesity, class 3; Z68.42 Body mass index [BMI] 45.0-49.9, adult; E78.5 Hyperlipidemia, unspecified; Z95.5 Presence of coronary angioplasty implant and graft; Z79.899 Other long term (current) drug therapy; Z79.82 Long term (current) use of aspirin; Z79.02 Long term (current) use of antithrombotics/antiplatelets; Z88.1 Allergy status to other antibiotic agents; Z82.49 Family history of ischemic heart disease and other diseases of the circulatory system
CPT/HCPCS: 80048; 85025; 85347; 92928; 92978; 93458; 99152; 99153; C1725; C1760; C1769; C1874; C9600; J1200; J1644; J2003; J3010; J7040

== ENCOUNTER 2025-05-08 11:20 | Outpatient (CLI) | payer OTHER, SELFPAY ==
--- OUTSIDE RECORDS SUMMARY | 2025-05-08 11:23 | XMS_ITS | Clinical Summary ---
Author Organization Healthcare Address [address] [place] [address] Care Team Providers Care Range Ecologist Name Role Phone Nikolai Mcclellan MD Primary Care Provider + [phone] Allergies Active Allergy Reactions Criticality Noted Date [...] 2019 [facility]-Zoster Vaccines (1 of 2) 2024 [id number] Vaccine ( - 2023- season) 2024 08/11/2021, [...] patient's age to complete this topic Insurance [facility] Care Teams Range Ecologist Relationship Specialty Start Date End Date Nikolai Mcclellan MD [address] [place] [address] PCP - General Internal Medicine 05/28/24
[2025-05-08 11:47] LABS: Hematocrit 43.0 % (42.0-52.0); Hemoglobin 14.4 g/dL (14.1-18.0); Immature Granulocytes % 0.3 %; Mean Corpuscular HGB Conc 33.5 g/dL (31.8-35.4); Mean Corpuscular Hemoglobin 30.4 pg (27.0-31.2); Mean Corpuscular Volume 90.9 fl (80-94); Nucleated Red Blood Cells % 0 %; Platelet Count 273 K/mm3 (142-424); Red Blood Count 4.73 M/mm3 (4.60-6.20); Red Cell Distribution Width-SD 47.7 fL; White Blood Count 7.7 K/mm3 (4.8-10.8)
[2025-05-08 12:04] LABS: Anion Gap 11.7 mEq/L (5-15); Blood Urea Nitrogen 14 mg/dl (9-20); Carbon Dioxide 26 mmol/L (22.0-30.0); Chloride 105 mmol/L (98-107); Creatinine,Serum 0.90 mg/dl (0.66-1.25); Potassium 4.7 mmoL/L (3.5-5.1); Sodium 138 mmol/L (136-145)
[2025-05-08 12:05] LABS: Alanine Aminotransferase 23 U/L (12-78); Albumin Level 4.3 g/dl (3.5-5.0); Albumin/Globulin Ratio 1.8 (1.1-1.8); Alkaline Phosphatase 87 U/L (38-126); Aspartate Amino Transferase 30 U/L (17-59); Bilirubin,Total 0.4 mg/dl (0.2-1.3); Calcium 9.9 mg/dl (8.4-10.2); Estimated Glomerular Filt Rate 89 ml/min (>60); GFR (African American) 108 ML/MIN (>60); Globulin 2.4 g/dL (1.3-3.2); Glucose 94 mg/dl (74-100); Total Protein,Serum 6.7 g/dl (6.3-8.2)
== END 2025-05-08 23:59 | disposition home or self-care (01) ==
LOC: LAB 11:21
PROVIDERS: PCP Internal Medicine Adolescent Medicine; Visit Provider Internal Medicine
DX: I25.10 Atherosclerotic heart disease of native coronary artery without angina pectoris (principal)
CPT/HCPCS: 36415; 80053; 85025

== ENCOUNTER 2025-05-18 08:54 | Outpatient (CLI) | payer OTHER, SELFPAY ==
--- OUTSIDE RECORDS SUMMARY | 2025-05-18 08:57 | XMS_ITS | Clinical Summary ---
Author Organization Healthcare Address [address] [place] [address] Care Team Providers Care Logistics Engineering Manager Name Role Phone Nikolai Mcclellan MD Primary Care Provider + [phone] Allergies Active Allergy Reactions Criticality Noted Date [...] [facility]-HIV Screening 1974 [facility]-Hepatitis C Screening 1974 [facility]-Infant/Child/Adol SDOH Screenings 1974 [facility]-IPV Vaccines (2 of 3 - 4-dose series) 01/26/1981 12/29/1980 [facility]- SDOH Screenings 1992 [facility]-Adult SDOH Screenings 1992 [facility]-Pneumococcal Vaccine: 50 + Years (1 of 2 - PCV) 1993 CT Colonography 2019 Colonoscopy 2019 FIT-DNA 2019 FIT 2019 FOBT 2019 Sigmoidoscopy 2019 [facility]-Colorectal Cancer Screening 2019 [facility]-Zoster Vaccines (1 of 2) 2024 [id number] Vaccine ( - 2023- season) 2024 08/11/2021, [...] patient's age to complete this topic Insurance [facility] Care Teams Logistics Engineering Manager Relationship Specialty Start Date End Date Nikolai Mcclellan MD [address] [place] [phone] PCP - General Internal Medicine 05/28/24
--- NOTE | 2025-05-18 09:00 | US_ITS ---
FINAL REPORT TECHNIQUE: Sonographic images of the abdomen were obtained in all four quadrants. CLINICAL HISTORY: Hepatomegaly, Shortness of Breath COMPARISON: None FINDINGS: LIVER: Fatty infiltration of the liver. Portal vein is patent. No focal hepatic lesion or intrahepatic biliary dilatation. GALLBLADDER: No gallstones. No pericholecystic fluid collection or gallbladder wall thickening. The common duct measures mm. This is within normal limits for age. PANCREAS: Unremarkable. RIGHT KIDNEY: 10.0 cm. No hydronephrosis, mass or stone. LEFT KIDNEY: 11.1 cm. No hydronephrosis, mass or stone. SPLEEN: 10.2 cm. No focal splenic lesion. AORTA/IVC: No abdominal aortic aneurysm. Visualized IVC within normal limits. OTHER: No ascites. IMPRESSION: Fatty liver. Reviewed, Interpreted and Dictated by Myrtle Escalante MD Transcribed by Nimco Davila Authenticated and [facility]
== END 2025-05-18 23:59 | disposition home or self-care (01) ==
LOC: RAD 08:55
PROVIDERS: PCP Internal Medicine Adolescent Medicine; Visit Provider Internal Medicine Pulmonary Disease
DX: K76.0 Fatty (change of) liver, not elsewhere classified (principal); R16.0 Hepatomegaly, not elsewhere classified; R06.02 Shortness of breath
CPT/HCPCS: 76700

== ENCOUNTER 2025-05-25 07:33 | Outpatient (CLI) | payer OTHER, SELFPAY ==
--- OUTSIDE RECORDS SUMMARY | 2025-05-25 07:36 | XMS_ITS | Clinical Summary ---
Author Organization Healthcare Address [address] [place] [address] Care Team Providers Care Organ Assembler Name Role Phone Nikolai Mcclellan MD Primary Care Provider + [phone] Allergies Active Allergy Reactions Criticality Noted Date [...] 2019 UKY-Zoster Vaccines (1 of 2) 2024 [id number] Vaccine ( - 2023- season) 2024 08/11/2021, [...] patient's age to complete this topic Insurance [place] [id number] Care Teams Organ Assembler Relationship Specialty Start Date End Date Nikolai Mcclellan MD [address] [place] [address] PCP - General Internal Medicine 05/28/24
[2025-05-25 08:37] LABS: Alanine Aminotransferase 21 U/L (12-78); Albumin Level 4.2 g/dl (3.5-5.0); Albumin/Globulin Ratio 1.8 (1.1-1.8); Alkaline Phosphatase 92 U/L (38-126); Anion Gap 10.3 mEq/L (5-15); Aspartate Amino Transferase 29 U/L (17-59); Bilirubin,Total 0.6 mg/dl (0.2-1.3); Blood Urea Nitrogen 18 mg/dl (9-20); Calcium 8.7 mg/dl (8.4-10.2); Carbon Dioxide 28 mmol/L (22.0-30.0); Chloride 103 mmol/L (98-107); Cholesterol 194 mg/dl (140-200); Creatinine,Serum 0.80 mg/dl (0.66-1.25); Estimated Glomerular Filt Rate 102 ml/min (>60); GFR (African American) 123 ML/MIN (>60); Globulin 2.3 g/dL (1.3-3.2); Glucose 88 mg/dl (74-100); HDL Cholesterol 50 mg/dl (40-60); Potassium 4.3 mmoL/L (3.5-5.1); Sodium 137 mmol/L (136-145); Total Protein,Serum 6.5 g/dl (6.3-8.2)
[2025-05-25 08:45] LABS: Triglycerides 422 mg/dl (30-150)
[2025-05-25 09:36] LABS: Hemoglobin A1C 5.7 % (4.0-6.0)
== END 2025-05-25 23:59 | disposition home or self-care (01) ==
LOC: LAB 07:34
PROVIDERS: PCP Internal Medicine Adolescent Medicine; Visit Provider Internal Medicine Adolescent Medicine
DX: I25.10 Atherosclerotic heart disease of native coronary artery without angina pectoris (principal)
CPT/HCPCS: 36415; 80053; 80061; 83036